=== PATIENT | male | born 1935 | race Caucasian/White ===

== ENCOUNTER → 2017-02-24 | Outpatient (CLI) | payer OTHER ==
[~2017-02-24] MED LIST: GADOBUTROL 10 ML VIAL IVP ONE
[2017-02-24 10:44] LABS: GLOMERULAR FILTRATION RATE > 60
== END ==
LOC: FIMAGING 09:25
PROVIDERS: ATTEND Family Medicine
DX: M51.36 Other intervertebral disc degeneration, lumbar region (principal); M51.37 Other intervertebral disc degeneration, lumbosacral region; M48.06 Spinal stenosis, lumbar region; M99.73 Connective tissue and disc stenosis of intervertebral foramina of lumbar region; M43.16 Spondylolisthesis, lumbar region; M51.26 Other intervertebral disc displacement, lumbar region; M12.88 Other specific arthropathies, not elsewhere classified, other specified site
CPT/HCPCS: 72158; A9585

== ENCOUNTER → 2017-12-19 | Outpatient (CLI) | payer OTHER | LOC: FIMAGING 10:23 | PROVIDERS: ATTEND Family Medicine | DX: S20.211A Contusion of right front wall of thorax, initial encounter (principal); M19.011 Primary osteoarthritis, right shoulder; Z87.81 Personal history of (healed) traumatic fracture ==

== ENCOUNTER → 2018-01-30 | Outpatient (CLI) | payer OTHER | LOC: FIMAGING 08:02 | PROVIDERS: ATTEND Family Medicine | DX: R90.82 White matter disease, unspecified (principal); I48.91 Unspecified atrial fibrillation; R26.89 Other abnormalities of gait and mobility; R42 Dizziness and giddiness ==

== ENCOUNTER 2018-10-24 16:06 | Observation (INO) | payer OTHER ==
--- NOTE | 2018-10-24 16:31 | EDPHY ---
H & P Time Seen by Provider: 10/24/18 16:31 HPI/ROS: Chief complaint. Fell, hit head HPI. Patient a 83-year-old male who was going out to get the newspaper and slipped and fell rolling down the hill. He struck his head but did not lose consciousness. He is on Coumadin. He complains of some anterior neck discomfort with change of voice. He has posterior and right lateral chest wall pain. Denies abdominal pain. He sustained abrasion to the right elbow. Otherwise good range of motion and he has been ambulatory. ROS 10 systems were reviewed and negative with the exception of the elements mentioned in the history of present illness Past Medical/Surgical History: Atrial fibrillation, hypertension, dyslipidemia, hypothyroid, TIA PE Social History: , nonsmoker, no alcohol Smoking Status: Never smoked Physical Exam: General Appearance: Alert well-developed male moderate distress vital signs are stable Eyes: Pupils equal and round no pallor or injection. ENT, no hemotympanum or Duncan sign. No oral pharyngeal or dental trauma. Small bump to the back of his head. Respiratory: There are no retractions, lungs are clear to auscultation. Cardiovascular: Regular rate and rhythm. Gastrointestinal: Abdomen is soft and nontender, no masses, bowel sounds normal. Neurological: Awake and alert, sensory and motor exams grossly normal. Skin: Abrasion right elbow Musculoskeletal: Neck is nontender. TLS spine nontender. Right posterior and right lateral chest wall tenderness Extremities symmetrical, full range of motion. Psychiatric: Patient is oriented X 3, there is no agitation. Constitutional: Initial Vital Signs Temperature (C) 36.3 C 10/24/18 16:13 Heart Rate 72 10/24/18 16:13 Respiratory Rate 16 10/24/18 16:13 Blood Pressure 170/103 H 10/24/18 16:13 O2 Sat (%) 94 10/24/18 16:13 O2 Delivery Mode Room Air Allergies/Adverse Reactions: acetaminophen [From Percocet] Allergy (Severe, Verified 10/24/18 16:23) PASSED OUT coffee (Coffea arabica) [Coffee] Allergy (Severe, Verified 10/24/18 16:23) BALANCE ISSUES, PERIPERAL VISION AFFECTED, N/V oxycodone HCl [From Percocet] Allergy (Severe, Verified 10/24/18 16:23) PASSED OUT RUM Allergy (Severe, Uncoded 12/13/10 15:11) VOMIT rum, alcohol Allergy (Intermediate, Uncoded 11/11/11 22:01) Vomiting Home Medications: Medication Instructions Recorded Ascorbic Acid [Vitamin C 500 mg 1,000 mg PO TID 03/25/13 (OTC)] Aspirin [Aspirin 81mg (OTC)] 81 mg PO DAILY 03/25/13 Atorvastatin Calcium [Lipitor 20 20 mg PO DAILY 03/25/13 mg (RX)] Herbals/Supplements -Info Only 1 each PO AD 03/25/13 Hydrochlorothiazide 12.5 mg PO DAILY 03/25/13 [Hydrochlorothiazide 12.5 MG (RX)] Levothyroxine [Synthroid 50 mcg 50 mcg PO HS 03/25/13 (RX)] Md Reconciled 03/25/13 03/25/13 Metoprolol Succinate Xr [Toprol Xl 100 mg PO HS 03/25/13 100 mg (RX)] Multivitamins [Tab-A-Cindi] 1 each PO DAILY 03/25/13 [place]-3 Fatty Acids [Fish Oil 1000 2,000 mg PO TID 03/25/13 mg (OTC)] Pharmacy Completed 03/25/13 03/25/13 Ubidecarenone [Coenzyme Q10] 400 mg PO DAILY 03/25/13 Valsartan [Diovan 80MG (RX)] 80 mg PO DAILY 03/25/13 Warfarin Sodium [Coumadin 2.5MG 2.5 mg PO THFR@0900 03/25/13 (RX)] Warfarin Sodium [Coumadin 5MG (RX)] 5 mg PO SUMOTUWESA@0900 03/25/13 Medical Decision Making - Diagnostics Imaging Results: Imaging Impressions Cervical Spine CT 10/24/18 16:41 Impression: Multilevel advanced degenerative change, as above-detailed, with no acute cervical osseous abnormality. If there is further clinical concern regarding the patient's symptoms, correlative MR imaging could be considered, if otherwise not contraindicated. Findings were discussed with SOLA WRIGHT MD at 18:48, on 10/24/2018. Chest CT 10/24/18 16:41 Impression: 1. There are acute right fourth, fifth, sixth, seventh, and eighth lateral rib fractures, and acute nondisplaced right posterior sixth, seventh, and eighth rib fractures, with areas of bibasilar subsegmental atelectasis and trace right pleural effusion, but no pneumothorax or pneumomediastinum. 2. Coronary artery atherosclerotic calcifications. 3. Sequela of old granulomatous disease. Findings were discussed with SOLA WRIGHT MD at 19:04, on 10/24/2018. Head CT 10/24/18 16:41 Impression: Moderately advanced senescent features, with no acute intracranial abnormality identified on this unenhanced CT evaluation. If there is further clinical concern regarding the patient's symptoms, MR imaging is suggested, if not otherwise contraindicated. Findings were discussed with SOLA WRIGHT MD at 18:48, on 10/24/2018. CT head shows no evidence of intracranial bleeding Cervical spine shows DJD but no obvious acute trauma CT chest shows fractures right 4th, 5th, 6th, 7th an 8 lateral ribs and then posteriorly right 6 7th and 8th rib fractures. No pneumothorax Procedures: IV normal saline Flexeril, lidocaine patch ED Course/Re-evaluation: Re-evaluation patient remained stable. He and I discussed imaging and lab results. We discussed treatment plan including recommendation for admission. He expresses and agreement I consulted discussed case with Dr. Oro will see him in the emergency department Differential Diagnosis: I considered intracranial bleeding secondary to head injury and being on Coumadin. I considered cervical spine injury. I considered multiple rib fractures and pneumothorax as well - Data Points Laboratory Results: Laboratory Results 10/24/18 16:00 10/24/18 16:00 10/24/18 10/24/18 10/24/18 16:00 16:00 16:00 WBC 7.76 10^3/uL 10^3/uL (3.80-9.50) RBC 4.84 10^6/uL 10^6/uL (4.40-6.38) Hgb 16.4 g/dL g/dL (13.7-17.5) Hct 47.5 % % (40.0-51.0) MCV 98.1 fL fL (81.5-99.8) MCH 33.9 pg pg (27.9-34.1) MCHC 34.5 g/dL g/dL (32.4-36.7) RDW 12.6 % % (11.5-15.2) Plt Count 185 10^3/uL 10^3/uL (150-400) MPV 9.0 fL fL (8.7-11.7) Neut % (Auto) 77.8 % H % (39.3-74.2) Lymph % (Auto) 11.9 % L % (15.0-45.0) [place] % (Auto) 6.8 % % (4.5-13.0) Eos % (Auto) 2.8 % % (0.6-7.6) Baso % (Auto) 0.3 % % (0.3-1.7) Nucleat RBC Rel Count 0.0 % % (0.0-0.2) Absolute Neuts (auto) 6.04 10^3/uL 10^3/uL (1.70-6.50) Absolute Lymphs (auto) 0.92 10^3/uL L 10^3/uL (1.00-3.00) Absolute Monos (auto) 0.53 10^3/uL 10^3/uL (0.30-0.80) Absolute Eos (auto) 0.22 10^3/uL 10^3/uL (0.03-0.40) Absolute Basos (auto) 0.02 10^3/uL 10^3/uL (0.02-0.10) Absolute Nucleated RBC 0.00 10^3/uL 10^3/uL (0-0.01) Immature Gran % 0.4 % % (0.0-1.1) Immature Gran # 0.03 10^3/uL 10^3/uL (0.00-0.10) PT 21.2 SEC H SEC (12.0-15.0) INR 1.82 H (0.83-1.16) APTT 38.8 SEC H SEC (23.0-38.0) Sodium 132 mEq/L L mEq/L (135-145) Potassium 3.3 mEq/L L mEq/L (3.5-5.2) Chloride 97 mEq/L mEq/L (97-110) Carbon Dioxide 27 mEq/l mEq/l (22-31) Anion Gap 8 mEq/L mEq/L (6-14) BUN 12 mg/dL mg/dL (7-23) Creatinine 1.0 mg/dL mg/dL (0.7-1.3) Estimated GFR > 60 Glucose 129 mg/dL H mg/dL (70-100) Calcium 9.2 mg/dL mg/dL (8.5-10.4) Departure - Departure Disposition: [facility] Inpatient Acute Clinical Impression: Ribs, multiple fractures Qualifiers: Encounter type: initial encounter Fracture type: closed Laterality: right Qualified Code(s): S22.41XA - Multiple fractures of ribs, right side, initial encounter for closed fracture Condition: Fair Referrals: NONE *PRIMARY CARE P,. [Primary Care Provider] - As per Instructions
[2018-10-24 17:27] LABS: PLATELET COUNT 185 10^3/uL (150-400)
[2018-10-24] MEDS ORDERED: IOHEXOL 300 mgI/ML (OMNIPAQUE) 150 ML BTL IV ONE (17:37)
[2018-10-24 17:38] LABS: INR 1.82 (0.83-1.16); PROTIME(PATIENT) 21.2 SEC (12.0-15.0)
[2018-10-24] MEDS ORDERED: LIDOCAINE 4%/MENTHOL 1% PATCH TD ONE (19:14)
[2018-10-24] MEDS ORDERED: CYCLOBENZAPRINE 10 MG TAB PO ONE (19:14)
[2018-10-24] MEDS ORDERED: ONDANSETRON 4 MG/2 ML VIAL IVP PRN (19:47)
[2018-10-24] MEDS ORDERED: HYDROmorphONE/DILAUDID 1 MG/ML INJ IVP PRN (19:57)
[2018-10-24] MEDS ORDERED: LR 1,000 ML IV SCH (20:00)
[2018-10-24] MEDS ORDERED: PROTOCOL POTASSIUM 1 DOSE MISC PRN (20:53)
[2018-10-24] MEDS: LIDOCAINE 4%/MENTHOL 1% PATCH TD SCH (21:25)
[2018-10-24] MEDS: PATCH REMOVAL 1 EA PATCH TD SCH (21:26)
[2018-10-24] MEDS: BACITRACIN/POLYMYXIN B SULFATE 28.3 GM TUBE TP SCH (21:26)
[2018-10-24] MEDS: LEVOTHYROXINE 50 MCG TAB PO SCH (21:58)
[2018-10-24] MEDS: METOPROLOL TARTRATE 25 MG TAB PO SCH (21:58)
--- NOTE | 2018-10-24 22:05 | GHP ---
[f rep st] HISTORY AND PHYSICAL DATE OF ADMISSION: 10/24/2018 ADMITTING DIAGNOSIS: Fractures, right ribs 4, 5, 6, 7, 8 laterally and 6, 7, 8 posteriorly. HISTORY OF PRESENT ILLNESS: The patient is an 83-year-old white male who has had balance problems th at were first noted in August of 2017. He walked out into his front yard to get newspapers out of [place]. To do so, he had to walk up a small incline which was filled with rocks. He got 3 p apers out, then stepped on a loose rock and ran forward approximately 10 feet falling and landing on his right side, right chest and head on a cement walk. There was no loss of consciousness. He could not get up first. A workman from the house next door came over and helped him up and got hi m into the house. Shortly thereafter, he came to the emergency room. He has had a history of TIAs prior to August 2017. As of January 2018, he had 2 episodes where it was difficult for him to get up off his couch. MRI was performed and did not show any evidence of a CVA. He has been to see a neuropsychologist because of short-term memory issues. He has also been evalu ated for moderate to severe decrease in memory function. He does have a slight aphasia by history. He does use a walking stick. At this point he is seen lying comfortably in ER bed 3. PAST SOCIAL HISTORY: He does not smoke. He does not use alcohol. After hip surgery, he took a Perc ocet when he was sitting in a chair and passed out. The record reflects he has an allergy to Percoce t and/or Tylenol. I think that is a misstatement. CURRENT MEDICATIONS: Include vitamin C 1000 mg 3 times a day, 81 mg aspirin a day, Lipitor 20 mg gilmar ly, and herbal supplements. He takes hydrochlorothiazide 12.5 daily. He takes Synthroid 50 mcg jeet y. He takes metoprolol XR 100 mg at bedtime, multivitamin. He takes omega-3 fatty acids 2000 mg 3 t imes a day. He takes Co Q10 400 mg daily. He takes valsartan 80 mg daily. He has been taking warfa rin 2.5 mg on and Fridays and only 5 mg Friday, Friday, Friday, Friday, Friday. Rece [facility] for dental surgery, he has been placed on a Lovenox bridge. PAST SURGICAL HISTORY: His surgeries have included tonsillectomy. He has had bilateral hip replacem ent. He has had bilateral cataract extraction. He has a lumbar laminectomy, L3,-L4, L4-L5, L5-S1. He had a prostatectomy for cancer. No history of rheumatic fever, tuberculosis, hepatitis, transfusions. REVIEW OF SYSTEMS: He had a dental surgery last Friday to work on his gums. He does have a BiPAP device, and this has irritated the gums. The bone had to be carefully shaved down and recovered wit h gum. He recently has obtained hearing aids. He has had atrial fibrillation for 2-3 years. He wea rs lenses for reading. He does have macular degeneration. He has had dental implants. He has been hypothyroid since 2005. Last TSH was 1 year ago. He has allergies that he attributes to cat scratch and bite or pollen in [place] many years ago. He has been hypertensive since 2004. He has mild pro statism manifested by difficulty starting his flow, with decrease in the flow and minimal terminal dr ibbling. Note is made he does not have any nocturia. There are no limits on his activities in terms of climbing stairs. He in the last 6 months except for dental topical steroid. His CT shows chronic microvascular ischemic ghosts. His neck shows multilevel degenerative changes. His chest shows fractures of ribs 4, 5, 6, 7, 8 laterally and 6, 7, 8 posteriorly. His blood pressu re on admission was in the 170s systolic. Most recently, it was 152/96. He normally runs his systol ic in the 120s. His room air sat is 94. His respirations are 14. His temperature is 36.7. He is a wake, alert and quite talkative. Occasionally has word choice issues, but on the whole could carry o n a very good conversation. PHYSICAL EXAMINATION: GENERAL APPEARANCE: He is interactive and pleasant. He is oriented to person , place, and time. HEAD: Skull is normocephalic. I do not detect any bruising in his right parieta l occipital region which is where he fell. He impacted the sidewalk. There are no raccoon eyes. No Duncan signs. He has normal dental occlusion. EYES: Pupils equal, round, reactive to light and ac commodation. Extraocular movements intact. NECK: Nontender to palpation. I do not detect any brui ts. Thyroid is not enlarged. NEUROLOGIC: He is oriented to person, place, and time. GCS is 15. I do not detect focal lateralizing findings. UPPER EXTREMITIES: Unremarkable except for the lateral aspect of his right elbow where there is a mo derately large skin tear. CHEST: Clear to auscultation. He is tender posteriorly and laterally ove r his fractured ribs as one would expect. The Lidoderm patch which was present has been readjusted t o cover the most tender areas. CARDIAC: Shows S1, S2 to be normal. He appears to have fairly regul ar heart rate at this time, bu9t I do not have any EKG tracing to prove whether he has a slow atrial fibrillation or not. ABDOMEN: His abdomen is generous. There is ecchymosis from his use of his Vicente enox last week. PELVIS: Stable to AP and lateral compression. LOWER EXTREMITIES: Unremarkable. LABORATORY DATA: His white count is 7.7. His INR is 1.82. His glucose is 129. Sodium is 133. His potassium is 3.3. His BUN is 12, his creatinine is 1.0. His platelet count is 185. IMPRESSION: Patient who is of great fall risk. He has fallen 3 times within the last year and broke n ribs with each fall. I am concerned for his continued use of anticoagulants. This will have to be sorted out by the hospitalist service as far as recommend further recommendations. From a neurologi c standpoint, he appears to be intact. Serial exams will be obtained. A followup MRI will be used i f necessary. In regard to his chest, he does have multiple rib fractures. These will be treated with topical lido megan patches and Flexeril. He will receive high dose Tylenol and Dilaudid. As his INR returns more towards a normal range, consideration should be given to using nonsteroidal anti-inflammatories. /[id number]/MODL
[2018-10-24] MEDS: CYCLOBENZAPRINE 10 MG TAB PO SCH (22:07)
[2018-10-24] MEDS: OMEGA-3 FATTY ACIDS 1,000 MG CAP PO SCH (22:07)
[2018-10-24] MEDS: ACETAMINOPHEN 500 MG TAB PO SCH (23:37)
--- NOTE | 2018-10-24 23:45 | CPEKG ---
Test Reason : OPEN Blood Pressure : / mmHG Vent. Rate : 077 BPM Atrial Rate : 357 BPM P-R Int : 064 ms QRS Dur : 100 ms QT Int : 373 ms P-R-T Axes : 000 024 247 degrees QTc Int : 423 ms Atrial fibrillation Confirmed by Andrea Magallon ([id number]) on 10/24/2018 11:44:57 PM Referred By: Andrea Magallon Confirmed By:Andrea Magallon
[2018-10-25 06:14] LABS: PLATELET COUNT 156 10^3/uL (150-400)
[2018-10-25 06:27] LABS: INR 1.77 (0.83-1.16); PROTIME(PATIENT) 20.7 SEC (12.0-15.0)
[2018-10-25] MEDS ORDERED: POTASSIUM CL 10 MEQ TAB PO ONE (08:53)
[2018-10-25] MEDS ORDERED: MULTIVITAMINS 1 EACH TAB PO SCH (09:00)
[2018-10-25] MEDS ORDERED: ASPIRIN 81 MG CHEWABLE TAB PO SCH (09:00)
[2018-10-25] MEDS ORDERED: HYDROCHLOROTHIAZIDE 25 MG TAB PO SCH (09:00)
[2018-10-25] MEDS ORDERED: WARFARIN SODIUM 2.5 MG TAB PO SCH (09:00)
[2018-10-25] MEDS ORDERED: LOSARTAN POTASSIUM 50 MG TAB PO SCH (09:00)
[2018-10-25] MEDS ORDERED: ATORVASTATIN CALCIUM 10 MG TAB PO SCH (09:00)
--- NOTE | 2018-10-25 09:17 | ASMTCMCOM ---
CM Note CM Note Notes: Pt is a 83 year old M, lives with . Presents after fall, has multiple rib fractures. Pt reports having memory issues, uses walking stick at baseline. PT/OT evals pending. Inpatient Rehab order in. Discharge plan TBD at this point. CM to follow. Plan: TBD Date Signed: 10/25/2018 09:17 AM Electronically Signed By:GABRIELLA Núñez
--- NOTE | 2018-10-25 09:21 | GCON ---
[f rep st] CONSULTATION DATE OF CONSULTATION: 10/24/2018 REFERRING PHYSICIAN: Mario Oro MD REASON FOR CONSULTATION: Medical opinion regarding continuation of Coumadin, status post fall. HISTORY: The patient is an 83-year-old male, who went out to the front yard today to clear some news papers that had blown into their landscaping. While he was there, some loose rocks slipped under his feet, as their landscaping is on an angle, and he fell to the ground, hitting his chest wall, rolled down the hill and hit his head, but did not lose consciousness. This event was witnessed by a local construction project administrator, who came over immediately. Said he was, briefly, a little confused, but the pa louisa subsequently got up from the ground and was able to walk back to the house and tell his wh at had happened. They subsequently drove to the emergency room because he was having ongoing chest p ain. In the ER, he was diagnosed with 8 rib fractures and is now on step-down unit, admitted to [facility], Dr. Oro. Regarding his long-term stability on his feet, he does have some balance issues and has seen Neurolog y and Neuropsychology as an outpatient. MRI of the brain was negative. He has compensated for this with physical therapy, walking sticks and massage therapy. Prior to this event, he has not had a pro blem with falls. He does not think the primary problem for his fall today was a balance issue, but i t was these loose rocks in the landscaping that went out from under him due to the angle of the slope . He also recently had some dental work and was on a Lovenox bridge, while he came off warfarin for 1 week. He is now resuming his warfarin, but is not yet subtherapeutic. He had been very stable on warfarin with INRs ranging 2.4-2.5, being followed closely [facility]. PAST MEDICAL HISTORY: 1. Atrial fibrillation. 2. Pulmonary embolus, post hip surgery. 3. Hypertension. 4. Prostate cancer status post prostatectomy. 5. SVT. 6. Obstructive sleep apnea, on BiPAP, post 2 L at night. 7. TIA. PAST SURGICAL HISTORY: 1. Lumbar spine surgery. 2. Bilateral total hip arthroplasty. MEDICATIONS: Please see computer record for full detailed list. ALLERGIES: Oxycodone. SOCIAL HISTORY: No smoking. No alcohol. He lives with his . REVIEW OF SYSTEMS: Complete review of systems obtained. Review of systems negative regarding consti tutional, HEENT, GI, pulmonary, vascular, , hematology, skin, muscular, endocrine, psych, except fo r positives as in HPI. FAMILY HISTORY: Reviewed, noncontributory to the presenting complaint. PHYSICAL EXAMINATION: GENERAL: Well-developed, well-nourished male, in no acute distress. VITAL SI GNS: Temperature 36.7, pulse 75, blood pressure 164/98, saturating 94% on room air. EYES: Normal c onjunctivae. Pupils react to light. ENT: Normal ears and nose. Hearing intact. Normal teeth. Or opharynx moist. NECK: Trachea midline. No thyromegaly. CHEST: Normal effort. Lungs are clear to auscultation bilaterally. CARDIOVASCULAR SYSTEM: Regular rate and rhythm. No murmur. No extremit y edema. ABDOMEN: Soft, nontender. No hepatosplenomegaly. SKIN: Warm, dry, intact. No rash. MU SCULOSKELETAL: No cyanosis or clubbing. Strength 5/5 upper and lower extremities. NEURO: Cranial nerves intact. Normal sensation to light touch. PSYCH ASSESSMENT: Awake, alert and oriented x3. N ormal affect. Normal judgment. Normal memory. LABORATORY DATA: White count 7.76, hematocrit 47.5, and platelets 185. Sodium 132, potassium 3.3, c hloride 97, bicarb 27, BUN 12, creatinine 1.0, glucose 129 and INR is 1.8. IMAGING: EKG viewed by me and my personal interpretation is atrial fibrillation, rate controlled. CT scan of the chest shows right anterior rib fractures, ribs 4 through 8, as well as some posterior rib fractures, ribs 6,7, and 8, for a total of 8 separate fractures. I personally discussed with Dr. Oro regarding hospital course, and request for consultation. ASSESSMENT AND PLAN: 1. Rib fractures x8. Management per Dr. Oro. EzPAP incentive spirometry and pain control have b een ordered. 2. Atrial fibrillation. He is currently rate controlled. I discussed the risk, benefit and ratios of continuing the warfarin with his current fall and the patient and his feel very strongly abou t wanting to continue warfarin therapy. They do not believe the current fall was a result of his mil d balance issues, but it was due to the loose rocks and the landscaping. We will therefore resume hi s warfarin. He is currently subtherapeutic due to recent dental work, but had been very stable on th is dose for a long period of time, so I will resume home dose and follow INRs. 3. Obstructive sleep apnea. Continue BiPAP at night, post 2 L. I thank you very much for this consultation. Hospitalist Medicine will continue to follow. /[id number]/MODL
--- NOTE | 2018-10-25 09:35 | TRAUMAPN ---
Trauma Progress Note Assessment/Plan: PAD#[address] 10/[address] Larson's input appreciated Assessment: Slept well, Pain control good this AM. Plan: Will reassess pain control later today and consider when discharge is appropriate. Subjective: no complaints. As noted in Dr. Larson's note patient and wish to continue coumadin understanding the risks of bleeding if another fall occurs. Objective: Vital Signs Temp Pulse Resp BP Pulse Ox 36.6 C 67 15 146/90 H 100 10/25/18 08:00 10/25/18 08:00 10/25/18 08:00 10/25/18 08:00 10/25/18 08:00 Laboratory Results 10/25/18 06:00 10/25/18 06:00 10/24/18 10/25/18 10/26/18 05:59 05:59 05:59 Intake Total 1150 Output Total 650 Balance 500 PT 20.7 SEC (12.0-15.0) H 10/25/18 06:00 INR 1.77 (0.83-1.16) H 10/25/18 06:00 Physical Exam - Physical Exam General Appearance: WD/WN, alert, no apparent distress Respiratory: lungs clear, normal breath sounds Cardiac/Chest: irregularly irregular Abdomen: normal bowel sounds, non-tender, soft Male Genitalia: deferred Rectal: deferred Back: Normal inspection Skin: normal color, warm/dry Neuro/Psych: no motor/sensory deficits, alert, normal mood/affect, oriented x 3 , other Time Spent w/Patient (minutes): 25
[2018-10-25] MEDS: OMEGA-3 FATTY ACIDS 1,000 MG CAP PO SCH ×3 (10:47→20:47)
[2018-10-25] MEDS: CYCLOBENZAPRINE 10 MG TAB PO SCH ×3 (10:48→20:44)
[2018-10-25] MEDS: LIDOCAINE 4%/MENTHOL 1% PATCH TD SCH ×2 (10:49→20:48)
[2018-10-25] MEDS: BACITRACIN/POLYMYXIN B SULFATE 28.3 GM TUBE TP SCH ×3 (10:53→20:47)
[2018-10-25] MEDS: ACETAMINOPHEN 500 MG TAB PO SCH ×3 (10:54→20:46)
--- NOTE | 2018-10-25 12:58 | HOSPPROG ---
Hospitalist Progress Note Assessment/Plan: 83 yo M w AF on warfarin here w mechanical fall, rib fx rib fx: rec IS, flutter valve, lidocaine patch warfarin: resume warfarin, bb pain: surprisingly moderate dispo: ok to dc home per hospital medicine Subjective: case d/w dr tabares Objective: Vital Signs Temp Pulse Resp BP Pulse Ox 36.6 C 68 17 128/68 H 94 10/25/18 08:00 10/25/18 12:00 10/25/18 12:00 10/25/18 12:00 10/25/18 12:00 Laboratory Results 10/25/18 06:00 10/25/18 06:00 10/24/18 10/25/18 10/26/18 05:59 05:59 05:59 Intake Total 1150 Output Total 650 500 Balance 500 -500 PT 20.7 SEC (12.0-15.0) H 10/25/18 06:00 INR 1.77 (0.83-1.16) H 10/25/18 06:00 - Physical Exam Constitutional: no apparent distress, appears nourished Eyes: PERRL, anicteric sclera Ears, Nose, Mouth, Throat: moist mucous membranes, hearing normal Cardiovascular: regular rate and rhythym, no murmur, rub, or gallop Respiratory: no respiratory distress, no rales or rhonchi Gastrointestinal: normoactive bowel sounds, soft, non-tender abdomen Genitourinary: No nicholson in urethra Skin: warm, normal color Musculoskeletal: full muscle strength, no muscle tenderness Neurologic: AAOx3 ICD10 Worksheet Patient Problems: Problems Problem Status Onset Ribs, multiple fractures Acute
--- NOTE | 2018-10-25 13:02 | PDCONSULT ---
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 Although patient is at high risk for bleeding complications due to age and falls, his risk for further CVA is high. Both patient and feel strongly that he is maintained on warfarin therapy given personal and family history of AFib and strokes # right-sided rib fractures, no pneumothorax or hemothorax # mechanical falls # atrial fibrillation # CVA. One CVA with mild residual deficits combined with multiple TIAs. # history of PE, provoked after hip surgery # moderate cognitive impairment. Has been evaluated by Neurology as well as neuropsych. # SHANE # hypothyroidism PLAN # PT/OT # given atrial fibrillation, multiple TIAs and CVA as well as strong family history of AFib and CVA combined with strong patient and spouse preference, suggest continuing anticoagulation with warfarin # suggest mono therapy with warfarin and discontinue aspirin on discharge given advanced age of bleeding risk. Plus, patient denies history of coronary disease # advised patient not to take herbal supplements for due to possible drug interactions # given ultra low dose of metoprolol query whether not he needs a but defer to outpatient provider # fall precautions # continue CPAP with bleed in oxygen, okay for patient to use home machine # Feeding - regular diet # Analgesia APAP # Sedation none # Thromboprophylaxis - SQ hep # Head of bed elevated # Ulcer prophylaxis - NA # Glucose SSI # Skin no skin breakdown # Delirium - delirium precautions IMAGING Personally reviewed interpreted radiographic images well radiology reads. 10/24/2018 CT chest-multiple right-sided rib fractures intrapleural pleural effusion. No pneumothorax, no pneumomediastinum, no emphysematous changes small calcified pulmonary nodules consistent with old granulomatous disease CONSULT I was asked by Dr Oro of trauma surgery to evaluate this patient for ICU care in the setting of multiple medical comorbidities CC chest pain, sob HPI 83-year-old male with multiple medical problems and clean atrial fibrillation on longstanding Coumadin as well as moderate cognitive impairment who was admitted to the hospital after progressive chest pain shortness of breath after a mechanical fall. 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 Fall was witnessed. Denies hitting head, no loss of consciousness. He denied fevers, chills, nausea, vomiting, angina, diarrhea, nausea, vomiting, rash, leg swelling. In the emergency department he underwent imaging which demonstrated a rib fractures and was admitted to the ICU for closer monitoring. Patient family complained of longstanding bowels and cognition issues. His previous head MRI brain. He has been evaluated by neuropsychiatry use determine patient has moderate cognitive impairment. He works with physical therapy as well as massage therapy as an outpatient. He has never had a head bleed. allergies A Pap, coffee, oxycodone, alcohol MEDS reviewed. Aspirin, atorvastatin, warfarin, vitamin-C, hydrochlorothiazide, Synthroid Past medical history Atrial fibrillation, TIA, CVA, hyperlipidemia, hypothyroidism, Family history Multiple family members with AFib and stroke Social history Lives in [place], lives with , nonsmoker, nondrinker Review of systems A comprehensive 10 point review of systems was obtained is negative except as per HPI Vitals Afebrile, heart rate irregular 68, blood pressure 128/68, respiratory is 17 94% room air GEN: NAD, resting in bed, interactive NEURO: A&Ox3, CN 2-12 GI, slowed speech some difficulties with word finding. HEENT: PERRL, EOMI, MMM, OP clear NECK: supple, trachea midline CHEST normal shape, no pes excavatum CVS: Irregularly irregular no m/r/g PULM: CTA B, no wheezes/rales/rhonchi ABD: soft, NT, ND, NABS EXT: no swelling, no cyanosis, full ROM SKIN: warm, dry, intact, no rash PSYCH CAM negative, appropriate affect Labs Reviewed
--- NOTE | 2018-10-25 17:18 | ASMTCMCOM ---
CM Note CM Note Notes: CM discussed discharge plan with pt and his . They are requesting HomeCare with [facility] since [facility] does not have availabilities until Wedneday. CM submit referral to [facility]. Discussed plan with RN and speech therapy director. Family to transport. No other needs identified. Plan: Home with [facility]. Date Signed: 10/25/2018 05:17 PM Electronically Signed By:GABRIELLA Núñez
--- NOTE | 2018-10-25 19:43 | PDIAF ---
- Diagnosis Diagnosis: right rib fractures 4-9 laterally and 6-9 posteriorly Code Status: Full Code - Medication Management Discharge Medications: electronically signed and located in the Home Medication List. - Orders Services needed: Home Care, Physical Therapy, Occupational Therapy Home Care Face to Face: I certify that this patient was under my care and that I had the required [id number] encounter meeting the encounter requirements on the discharge day. My findings support the fact that the patient is homebound as defined in Home Care Face to Face Continued: CMS Chapter 7 Medicare Benefits Manual 30.1.1 , The condition of the patient is such that there exists a normal inability to leave home and consequently, leaving home would require a considerable and taxing effort. Diet Recommendation: no restrictions on diet Diet Texture: Regular Texture Diet Additional Instructions: Use the incentive spirometer 10 times every hour, Acapella 10 times every hour as well. - Follow Up Care Current Providers and Referrals: James Dukes MD [Medical Doctor] - (Call for a follow up appointment with Franco Curtis or Sarah in 10-14 days or see your primary care doctor in the same time frame.) NONE *PRIMARY CARE P,. [Primary Care Provider] - As per Instructions
[2018-10-25] MEDS: LEVOTHYROXINE 50 MCG TAB PO SCH (20:44)
[2018-10-25] MEDS: METOPROLOL TARTRATE 25 MG TAB PO SCH (20:45)
[2018-10-25] MEDS: PATCH REMOVAL 1 EA PATCH TD SCH (20:47)
[2018-10-25 20:50] VITALS: BP 146/80
--- NOTE | 2018-10-26 05:57 | GDS ---
[f rep st] DISCHARGE SUMMARY DISCHARGE DIAGNOSES: 1. Fracture right ribs, laterally 4 through 8 and right ribs posteriorly 6 through 8. 2. Atrial fibrillation, on warfarin. 3. History of transient ischemic attacks and cerebrovascular accidents. DISCHARGE DISPOSITION: Home with home health service (not [facility]). CONDITION: Good. DIETARY RECOMMENDATIONS: There are no restrictions on his diet. His dietary texture is regular. HOME MEDICATIONS: Include new medications for pain control which are Tylenol 1000 mg every 8 hours, Flexeril 5 mg every 8 hours, Dilaudid 2 mg every 4 hours as needed, Lidocaine patch over the rib frac tures. He will also receive topical antibiotic over his right elbow skin tear. He will continue his omega-3 fatty acids (fish oil 1000 mg) daily, multivitamin 1 tablet daily, vitamin C 1000 mg twice a day, noon and 6 p.m. He will take warfarin 5 mg every Friday, Friday, and Friday and he will bertha e 2.5 mg on Friday, Friday, , and Friday. He will continue his Synthroid 50 mcg at bedtim e, 81 mg aspirin, his herbal supplements, his Cozaar 50 mg daily, his Lopressor 25 mg at bedtime, hyd rochlorothiazide 25 mg daily, his Lipitor 10 mg daily and his vitamin C 2000 mg daily in addition to the vitamin C listed above. ACTIVITY: He is to use his incentive spirometer 10 times every hour and in the half hour use Acapell a 10 times. FOLLOWUP: He is to follow up with Dr. Jesse Dukes' office in 7-10 days where he will see his prima care doctor in the same timeframe. HOSPITAL COURSE: The patient was admitted and was in the hospital for approximately 24 hours. He wa s doing well with his to approximately 1999. He was able to get up and move around withou t discomfort. He was able to use his Acapella without difficulty. His chest x-rays remained stable. He will be discharged. discharge forms were completed. /[id number]/MODL
--- NOTE | 2018-10-26 08:58 | ASDISCHSUM ---
Discharge Information Plan Status:Home with Home Health Medically Cleared to Leave: Discharge Date:10/25/2018 08:55 PM CM D/C Disposition:Home Health Service ADT D/C Disposition:[id number] Projected Discharge Date:10/25/2018 11:00 AM Transportation at D/C:Family Discharge Delay Reason: Follow-Up Date:10/25/2018 11:00 AM Discharge Slot: Final Diagnosis: Placement Information Referral Type:*Home Health Care Services Referral ID:[id number] Provider Name:[facility] Address 1:[address] Address 2: City:[place] Selection Factors: State:[place] Patient Contact Information Contact Name:JOI Relationship: Address:[address] Work Phone: City:[place] Alternate Phone: State/Zip Code:[place] [address] Email: Financial Information Financial Class:Medicare Primary Plan Desc:MEDICARE INPATIENT Primary Plan Number:[id number] Secondary Plan Desc:WILLIS RODRIGUEZ CULLEN Secondary Plan Number:[id number] Assessment Information [facility] CM Progress Note CM Note CM Note Notes: Pt is a 83 year old M, lives with . Presents after fall, has multiple rib fractures. Pt reports having memory issues, uses walking stick at baseline. PT/OT evals pending. Inpatient Rehab order in. Discharge plan TBD at this point. CM to follow. Plan: TBD Date Signed: 10/25/2018 09:17 AM Electronically Signed By:GABRIELLA Núñez [facility] CM Progress Note CM Note CM Note Notes: CM discussed discharge plan with pt and his . They are requesting HomeCare with [facility] since [facility] does not have availabilities until Wedneday. CM submit referral to [facility]. Discussed plan with RN and computerized machine fabric cutter. Family to transport. No other needs identified. Plan: Home with [facility]. Date Signed: 10/25/2018 05:17 PM Electronically Signed By:GABRIELLA Núñez Case Management Discharge Plan Note Case Management Discharge Discharge Order Complete? Answers: Yes Patient to Obtain Answers: via Family Medications Transportation Arranged Answers: Family/Friends Faxed Final Orders Answers: Yes Agency/Facility Transfer Answers: Yes Report Printed & Faxed to Receiving Agency Family Notified Answers: Yes Discharge Comments Notes: Pt discharged home with [facility]. Discharge ppwk sent via [employer]. Family agreeable with plan. Date Signed: 10/26/2018 08:55 AM Electronically Signed By:GABRIELLA Núñez LACE LACE Length of stay for Answers: 1 day current admission Acuity / Level of Answers: No Care: Did the patient have an inpatient admission? Comorbidities - select Answers: Any tumor (including all that apply lymphoma or leukemia) Cerebrovascular disease (CVA, TIA, aneurysms, vasc ular dementia) History of falls Other Notes: lumbar laminectomy, # of Emergency department Answers: 0 visits in the last 6 months Score: 8 Date Signed: 10/26/2018 08:57 AM Electronically Signed By:Lanny Beilke, CUFF PRESSER Intervention Information Intervention Type:*Incorrect Registration Date of Service:10/25/2018 09:57 AM Patient Type:Inpatient Staff Member:Mindy Macias Hours: Discipline: Severity: Comment:
[2018-10-26] MEDS ORDERED: WARFARIN SODIUM 5 MG TAB PO SCH (09:00)
== END 2018-10-25 20:55 | disposition home health service (06) ==
LOC: INTOOBSV 19:21 → F2N 20:21
PROVIDERS: ADMIT Surgery; ATTEND Surgery
DX: S22.41XA Multiple fractures of ribs, right side, initial encounter for closed fracture (principal); S50.311A Abrasion of right elbow, initial encounter; S09.90XA Unspecified injury of head, initial encounter; I48.91 Unspecified atrial fibrillation; I10 Essential (primary) hypertension; I25.10 Atherosclerotic heart disease of native coronary artery without angina pectoris; E78.5 Hyperlipidemia, unspecified; E03.9 Hypothyroidism, unspecified; G47.33 Obstructive sleep apnea (adult) (pediatric); W17.81XA Fall down embankment (hill), initial encounter; Y92.008 Other place in unspecified non-institutional (private) residence as the place of occurrence of the external cause; Y99.9 Unspecified external cause status; Y93.9 Activity, unspecified; Z79.01 Long term (current) use of anticoagulants; Z86.73 Personal history of transient ischemic attack (TIA), and cerebral infarction without residual deficits; Z85.46 Personal history of malignant neoplasm of prostate; Z96.643 Presence of artificial hip joint, bilateral
CPT/HCPCS: 70450; 71045; 71260; 72125; 92523; 93005; 97116; 97162; 97166; 97535; G0378; Q9967

== ENCOUNTER 2018-10-27 13:17 | Inpatient (IN) | payer OTHER ==
[2018-10-27 14:38] LABS: PLATELET COUNT 154 10^3/uL (150-400)
--- NOTE | 2018-10-27 15:03 | EDPHY ---
H & P Stated Complaint: fell on friday and 5 ribs on right broken. Unable to thrive at home. Time Seen by Provider: 10/27/18 13:55 HPI/ROS: CHIEF COMPLAINT: Severe right-sided rib pain HISTORY OF PRESENT ILLNESS: 83-year-old male presents with severe right-sided rib pain. He fell on 10/24/2017 and sustained multiple rib fractures. He was admitted to the [facility] trauma service and discharged home 2 days ago. He was discharged home on Dilaudid, Flexeril and lidocaine patches. Since discharge home, onset of severe pain, unrelieved with Flexeril and lidocaine patches. This morning, he was difficult to arouse. He has not taken oral Dilaudid since discharge because his feels the medication is too strong for him. He complains 10/10 right-sided chest pain. No shortness of breath or abd pain and no new complaints. REVIEW OF SYSTEMS: complete 10 point ROS negative except as noted in the HPI Source: Patient, Family - Personal History Current Tetanus Diphtheria and Acellular Pertussis (TDAP): Yes Tetanus Vaccine Date: 2000 - Medical/Surgical History Hx Asthma: No Hx Chronic Respiratory Disease: No Hx Diabetes: No Hx Cardiac Disease: Yes Hx Renal Disease: No Hx Cirrhosis: No Hx Alcoholism: No Hx HIV/AIDS: No Hx Splenectomy or Spleen Trauma: No Other PMH: a-fib, hypertension, hyperlipidemia, hypothyroid, tia/stroke, alexandre, arthritis, prostate ca - prostatectomy, bilat hip rep, tonsillectomy, lumbar laminectomy, PE - Social History Smoking Status: Never smoked Alcohol Use: Sober Drug Use: None Additional Social History: - Physical Exam Exam: General Appearance: Alert, pleasant, appears in pain with torso movement Eyes: Pupils equal and round, no conjunctival pallor ENT, Mouth: Mucous membranes moist Neck: Normal inspection, NT, ROM without pain Respiratory: right c/w tenderness, normal RR, lungs are clear to auscultation Cardiovascular: Regular rate and rhythm Gastrointestinal: Abdomen is soft and nontender Back: no midline tenderness Neurological: A&O, nonfocal exam Skin: Warm and dry Extremities: Normal inspection Psychiatric: Mood and affect normal Constitutional: Initial Vital Signs Temperature (C) 36.8 C 10/27/18 13:23 Heart Rate 90 10/27/18 13:23 Respiratory Rate 16 10/27/18 13:23 Blood Pressure 164/109 H 10/27/18 13:23 O2 Sat (%) 96 10/27/18 13:23 O2 Delivery Mode Nasal Cannula O2 (L/minute) 2 Allergies/Adverse Reactions: coffee (Coffea arabica) [Coffee] Allergy (Severe, Verified 10/27/18 13:29) BALANCE ISSUES, PERIPERAL VISION AFFECTED, N/V oxycodone HCl [From Percocet] Allergy (Severe, Verified 10/27/18 13:29) PASSED OUT RUM Allergy (Severe, Uncoded 12/13/10 15:11) VOMIT rum, alcohol Allergy (Intermediate, Uncoded 11/11/11 22:01) Vomiting Home Medications: Medication Instructions Recorded Ascorbic Acid [Vitamin C 500 mg 1,000 mg PO BID@03/25/13 (*)] Aspirin [Aspirin 81mg (*)] 81 mg PO DAILY 03/25/13 Herbals/Supplements -Info Only 1 each PO AD 03/25/13 Levothyroxine [Synthroid 50 mcg 50 mcg PO HS 03/25/13 (*)] Multivitamins [Multivitamin (*)] 1 tab PO DAILY 03/25/13 Noble-3 Fatty Acids [Fish Oil 1000 1,000 mg PO DAILY 03/25/13 mg (*)] Warfarin Sodium [Coumadin 5MG (*)] 5 mg PO MOWEFR@03/25/13 Ascorbic Acid [Vitamin C 500 mg 2,000 mg PO DAILY 10/24/18 (*)] Atorvastatin Calcium [Lipitor 10 5 mg PO DAILY 10/24/18 mg (*)] Hydrochlorothiazide [HCTZ (*)] 25 mg PO DAILY 10/24/18 Losartan Potassium [Cozaar 50 mg 50 mg PO DAILY 10/24/18 (*)] Metoprolol Tartrate [Lopressor 25 6.25 mg PO HS 10/24/18 mg (*)] Warfarin Sodium [Coumadin 5MG (*)] 2.5 mg PO SUTUTHSA@10/24/18 Acetaminophen [Tylenol ES 500 mg 1,000 mg PO Q8H tab 10/25/18 (*)] Bacitracin/Polymyxin B Sulfate 1 brennon TP TID oint 10/25/18 [Polysporin oint (*)] Cyclobenzaprine [Flexeril 10 MG 5 mg PO TID #30 tab 10/25/18 (*)] HYDROmorphone HCL [Dilaudid 2 mg 2 mg PO Q4H PRN #40 tab 10/25/18 (*)] Lidocaine 4%/Menthol 1% [Icy Hot 1 patch TD DAILY 15 Days patch 10/25/18 Lidocaine/Menthol 4%/1% Patch (*)] Medical Decision Making - Diagnostics Imaging Results: Chest X-Ray 10/27/18 13:54 Impression: 1. Bronchitis/airways disease. 2. Atherosclerotic tortuous aorta. 3. Calcified mediastinal granulomata. 4. No definite pneumonia. Imaging: I viewed and interpreted images myself ED Course/Re-evaluation: This patient presents with severe right-sided rib pain, with a prior diagnosis of multiple rib fractures. Currently, his pain medication regimen is suboptimal and he is not taking narcotic pain medication. Repeat chest x-ray today reveals no evidence of pneumothorax or hemothorax. On exam, there is no evidence of any additional injury. Stanhope 1 tablet orally given. d/w pt and at length, will need stronger pain medication at home. Do not feel safe going home this evening. Will admit for pain management. 1500-consulted Dr. Jarrell, will admit to Medicine and the trauma service will consult. 1505: consulted Dr. Cristiano Balbuena, will admit to [facility]. Pt stable throughout his ED stay. Differential Diagnosis: Differential diagnosis includes though it is not limited to pneumonia, pneumothorax, pulmonary embolism, aortic dissection, pericarditis, acute coronary syndrome. - Data Points Laboratory Results: Laboratory Results 10/27/18 14:25 10/27/18 14:25 Medications Given: Acetaminophen (Tylenol) 1,000 mg PO Q8HRS [facility] Stop: 04/25/19 21:59 Last Admin: 10/28/18 13:50 Dose: 1,000 mg Atorvastatin Calcium (Lipitor) 5 mg PO DAILY TRACYE Stop: 04/26/19 08:59 Last Admin: 10/28/18 10:10 Dose: 5 mg Bacitracin/Polymyxin B Sulfate (Polysporin) 1 brennon TP TID TRACEY Stop: 11/26/18 21:59 Last Admin: 10/28/18 13:45 Dose: Not Given Hydrochlorothiazide (Hydrochlorothiazide) 25 mg PO DAILY TRACEY Stop: 04/26/19 08:59 Last Admin: 10/28/18 11:37 Dose: Not Given Lactulose (Cephulac) 20 gm PO TID PRN; Protocol PRN Reason: Constipation Stop: 04/25/19 15:52 Last Admin: 10/28/18 14:00 Dose: 20 gm Levothyroxine Sodium (Synthroid) 50 mcg PO HS TRACEY Stop: 04/25/19 20:59 Last Admin: 10/27/18 20:38 Dose: 50 mcg Losartan Potassium (Cozaar) 50 mg PO DAILY TRACEY Stop: 04/26/19 08:59 Last Admin: 10/28/18 11:37 Dose: Not Given Metoprolol Tartrate (Lopressor) 6.25 mg PO HS TRACEY Stop: 04/25/19 20:59 Last Admin: 10/27/18 20:38 Dose: 6.25 mg Miscellaneous Information (Patch Removal) 1 ea TD DAILY21 TRACEY Stop: 04/25/19 20:59 Last Admin: 10/28/18 05:30 Dose: 1 ea Miscellaneous Medication (Icy Hot Lidocaine/Menthol 4%/1% Patch) 1 patch TD DAILY TRACEY Stop: 04/25/19 15:59 Last Admin: 10/28/18 10:10 Dose: 1 patch Multivitamins (Tab-A-Cindi) 1 each PO DAILY TRACEY Stop: 04/26/19 08:59 Last Admin: 10/28/18 10:10 Dose: 1 each Sditi-0-Wmsf Ethyl Esters (Fish Oil) 1,000 mg PO DAILY TRACEY Stop: 04/26/19 08:59 Last Admin: 10/28/18 10:09 Dose: 1,000 mg Polyethylene Glycol (Miralax) 17 gm PO DAILY PRN; Protocol PRN Reason: Constipation, patient prefers Stop: 04/25/19 15:52 Last Admin: 10/28/18 05:26 Dose: 17 gm Senna/Docusate Sodium (Senokot-S) 1 - 2 tab PO BID TRACEY PRN Reason: Protocol Stop: 04/25/19 20:59 Last Admin: 10/28/18 10:09 Dose: 2 tab Tramadol HCl (Ultram) 50 mg PO Q6HRS PRN PRN Reason: Pain, Moderate Able to Take PO Stop: 04/26/19 13:04 Last Admin: 10/28/18 13:53 Dose: 50 mg Warfarin Sodium (Coumadin) 2.5 mg PO SUTUTHSA@09 [facility] Stop: 04/25/19 17:29 Last Admin: 10/27/18 17:48 Dose: 2.5 mg Warfarin Sodium (Coumadin) 5 mg PO MOWEFR@09 [facility] Stop: 04/26/19 08:59 Last Admin: 10/28/18 10:10 Dose: 5 mg Discontinued Medications Hydrocodone Bitart/Acetaminophen (Stanhope 5/325) 1 tab PO EDNOW ONE Stop: 10/27/18 15:10 Last Admin: 10/27/18 15:36 Dose: 1 tab Hydromorphone HCl (Dilaudid) 2 mg PO Q4HRS PRN PRN Reason: Pain, Severe Able to Take PO Stop: 11/06/18 15:11 Last Admin: 10/28/18 05:33 Dose: 2 mg Sodium Chloride (Ns) 1,000 mls @ 75 mls/hr IV CONT [facility] Stop: 10/28/18 04:29 Last Admin: 10/27/18 17:31 Dose: 1,000 mls Departure - Departure Disposition: [facility] Inpatient Acute Clinical Impression: Ribs, multiple fractures Qualifiers: Encounter type: initial encounter Fracture type: closed Laterality: right Qualified Code(s): S22.41XA - Multiple fractures of ribs, right side, initial encounter for closed fracture Condition: Fair
[2018-10-27] MEDS ORDERED: HYDROCODONE/APAP 5/325 TAB PO ONE (15:09)
[2018-10-27] MEDS ORDERED: ONDANSETRON 4 MG/2 ML VIAL IVP PRN (15:12)
[2018-10-27] MEDS ORDERED: HYDROmorphONE/DILAUDID 1 MG/ML INJ IVP PRN (15:12)
[2018-10-27] MEDS ORDERED: ACETAMINOPHEN 325 MG TAB PO PRN (15:12)
[2018-10-27] MEDS ORDERED: ONDANSETRON DISINTEGRATING 4 MG TAB PO PRN (15:12)
--- NOTE | 2018-10-27 15:46 | PDGENHP ---
History and Physical - Chief Complaint R sided rib pain - History of Present Illness Marybeth Reyna is a 83 yo M with a PMHx of A Fib on coumadin, TIA 08/2017, PE, prostate cancer s/p prostatectomy, SHANE, and multiple R sided recent Rib fractures s/p mechanical fall who presents to [facility] for severe R sided rib pain. His is at bedside who has helped with hx taking. They report that patient fall on Friday sustaining multiple R sided rib fractures. At that time, he was admitted to the trauma service and discharged the next kulwinder, Friday, back home. He was discharged on PO Dilaudid, Flexeril, scheduled Tylenol, and Lidocaine patch. They report that they were discharged late on Friday night and not able to get pain medications until yesterday afternoon. He was given Tylenol and Flexeril with some improvement of pain on Friday. This morning, pain was significantly worse, rated as "20/10" by patient causing him not to be able to get out of bed. His was concerned about the respiratory depression as a side effect of Dilaudid and withheld that medications. She also believed that Flexeril was causing sedation. Patient currently rates pain as 2/10 after receiving Dilaudid in ED. He denies any chest pain, n/v, diarrhea , f/c, LH, dizziness, palpitations. He does report no BM since Friday. History Information - Allergies/Home Medication List Allergies/Adverse Reactions: acetaminophen [From Percocet] Allergy (Severe, Verified 10/27/18 13:29) PASSED OUT coffee (Coffea arabica) [Coffee] Allergy (Severe, Verified 10/27/18 13:29) BALANCE ISSUES, PERIPERAL VISION AFFECTED, N/V oxycodone HCl [From Percocet] Allergy (Severe, Verified 10/27/18 13:29) PASSED OUT RUM Allergy (Severe, Uncoded 12/13/10 15:11) VOMIT rum, alcohol Allergy (Intermediate, Uncoded 11/11/11 22:01) Vomiting Home Medications: Ascorbic Acid [Vitamin C 500 mg (*)] 1,000 mg PO BID@03/25/13 [Last Taken 10/26/18] Aspirin [Aspirin 81mg (*)] 81 mg PO DAILY 03/25/13 [Last Taken 10/26/18] Herbals/Supplements -Info Only 1 each PO AD 03/25/13 [Last Taken 10/26/18] Levothyroxine [Synthroid 50 mcg (*)] 50 mcg PO HS 03/25/13 [Last Taken 10/26/18] Multivitamins [Multivitamin (*)] 1 tab PO DAILY 03/25/13 [Last Taken 10/26/18] Mercer-3 Fatty Acids [Fish Oil 1000 mg (*)] 1,000 mg PO DAILY 03/25/13 [Last Taken 10/26/18] Warfarin Sodium [Coumadin 5MG (*)] 5 mg PO MOWEFR@03/25/13 [Last Taken ] Ascorbic Acid [Vitamin C 500 mg (*)] 2,000 mg PO DAILY 10/24/18 [Last Taken ] Atorvastatin Calcium [Lipitor 10 mg (*)] 5 mg PO DAILY 10/24/18 [Last Taken ] Hydrochlorothiazide [HCTZ (*)] 25 mg PO DAILY 10/24/18 [Last Taken 10/26/18] Losartan Potassium [Cozaar 50 mg (*)] 50 mg PO DAILY 10/24/18 [Last Taken ] Metoprolol Tartrate [Lopressor 25 mg (*)] 6.25 mg PO HS 10/24/18 [Last Taken ] Warfarin Sodium [Coumadin 5MG (*)] 2.5 mg PO SUTUTHSA@10/24/18 [Last Taken ] I have personally reviewed and updated: family history, medical history, social history, surgical history - Past Medical History atrial fibrillation, cancer, hypertension - Surgical History Reports: cancer surgery - Family History Positive for: non-pertinent - Social History Smoking Status: Never smoked Review of Systems Review of Systems: ROS: 10pt was reviewed & negative except for what was stated in HPI & below Physical Exam Physical Exam: Temp Pulse Resp BP Pulse Ox 36.8 C 80 16 166/95 H 95 10/27/18 13:23 10/27/18 15:38 10/27/18 15:38 10/27/18 15:38 10/27/18 15:38 O2 (L/minute) 2 Constitutional: no apparent distress Eyes: PERRL Ears, Nose, Mouth, Throat: moist mucous membranes Cardiovascular: irregularly irregular Respiratory: no respiratory distress Gastrointestinal: soft, non-tender abdomen Skin: warm, normal color Musculoskeletal: pain with ROM Neurologic: AAOx3 Psychiatric: interacting appropriately Lab Data & Imaging Review 10/27/18 14:25 10/27/18 14:25 WBC 7.86 10^3/uL (3.80-9.50) 10/27/18 14:25 RBC 4.99 10^6/uL (4.40-6.38) 10/27/18 14:25 Hgb 17.4 g/dL (13.7-17.5) 10/27/18 14:25 Hct 49.7 % (40.0-51.0) 10/27/18 14:25 MCV 99.6 fL (81.5-99.8) 10/27/18 14:25 MCH 34.9 pg (27.9-34.1) H 10/27/18 14:25 MCHC 35.0 g/dL (32.4-36.7) 10/27/18 14:25 RDW 13.0 % (11.5-15.2) 10/27/18 14:25 Plt Count 154 10^3/uL (150-400) 10/27/18 14:25 MPV 9.6 fL (8.7-11.7) 10/27/18 14:25 Neut % (Auto) 74.1 % (39.3-74.2) 10/27/18 14:25 Lymph % (Auto) 14.6 % (15.0-45.0) L 10/27/18 14:25 Cobb % (Auto) 9.3 % (4.5-13.0) 10/27/18 14:25 Eos % (Auto) 1.3 % (0.6-7.6) 10/27/18 14:25 Baso % (Auto) 0.4 % (0.3-1.7) 10/27/18 14:25 Nucleat RBC Rel Count 0.0 % (0.0-0.2) 10/27/18 14:25 Absolute Neuts (auto) 5.83 10^3/uL (1.70-6.50) 10/27/18 14:25 Absolute Lymphs (auto) 1.15 10^3/uL (1.00-3.00) 10/27/18 14:25 Absolute Monos (auto) 0.73 10^3/uL (0.30-0.80) 10/27/18 14:25 Absolute Eos (auto) 0.10 10^3/uL (0.03-0.40) 10/27/18 14:25 Absolute Basos (auto) 0.03 10^3/uL (0.02-0.10) 10/27/18 14:25 Absolute Nucleated RBC 0.00 10^3/uL (0-0.01) 10/27/18 14:25 Immature Gran % 0.3 % (0.0-1.1) 10/27/18 14:25 Immature Gran # 0.02 10^3/uL (0.00-0.10) 10/27/18 14:25 Sodium 136 mEq/L (135-145) 10/27/18 14:25 Potassium 4.1 mEq/L (3.5-5.2) 10/27/18 14:25 Chloride 102 mEq/L (97-110) 10/27/18 14:25 Carbon Dioxide 24 mEq/l (22-31) 10/27/18 14:25 Anion Gap 10 mEq/L (6-14) 10/27/18 14:25 BUN 11 mg/dL (7-23) 10/27/18 14:25 Creatinine 0.9 mg/dL (0.7-1.3) 10/27/18 14:25 Estimated GFR > 60 10/27/18 14:25 Glucose 102 mg/dL (70-100) H 10/27/18 14:25 Calcium 8.7 mg/dL (8.5-10.4) 10/27/18 14:25 Specimen Hemolysis 196 10/27/18 14:25 Assessment & Plan Assessment: R Sided Rib Pain s/p Multiple Rib Fractures from Mechanical fall - Significant pain at home s/p mechanical fall causing 5 R sided rib fx - Admitted and discharged over the weekend by trauma surgery - CXR on admission showing no significant changes - Significant improvement in pain s/p Dilaudid in ED - Will continue PO Dilaudid 2 mg q4 hours PRN, PRN Flexeril, Lidocaine Patch, and scheduled tylenol - PT/OT ordered - Trauma surgery, Dr. Jarrell, to consult Constipation - Reports no BM since Friday - Will order bowel protocol HTN -Continue home HCTZ and Losartan A Fib - Continue home Metoprolol - Continue home Coumadin, restarted after mechanical fall, ASA held though per hospitalist consult on last admission - INR ordered Hypothyroidism - Continue home Synthroid HLD - Continue home Atorvastatin FEN: mIVF overnight @75 ml/hr, Regular Diet Code: FULL DVT PPx: Home Coumadin, INR pending Dispo: Admit to Observation
[2018-10-27] MEDS ORDERED: CYCLOBENZAPRINE 10 MG TAB PO PRN (15:51)
[2018-10-27] MEDS ORDERED: LACTULOSE 20 GM/30 ML UDCUP PO PRN (15:53)
[2018-10-27] MEDS ORDERED: BISACODYL 10 MG SUPP PR PRN (15:53)
[2018-10-27] MEDS ORDERED: POLYETHYLENE GLYCOL 3350 17 GM PKT PO PRN (15:53)
[2018-10-27] MEDS ORDERED: MAGNESIUM HYDROXIDE 30 ML UDCUP PO PRN (15:53)
[2018-10-27] MEDS ORDERED: NS 1,000 ML IV SCH (16:30)
--- NOTE | 2018-10-27 16:45 | TRAUMAPN ---
Trauma Progress Note - Problem/Surgery Performed (1) Fall from slip, trip, or stumble Assessment/Plan: patient is post injury day #3 following initial admission on 10/24 with discharge on 10/25 (2) Chest pain made worse by breathing Assessment/Plan: likely related to previously noted rib fractures, no findings to suggest delayed hemopneumothorax on repeat CXR today His pain is much improved currently 2/10, but was severe (he reports 20/10) enough to prompt him to call 911 (3) Atrial fibrillation Assessment/Plan: remains on anticoagulation with Coumadin/currently subtherapeutic with INR 1.77 will start therapeutic Lovenox until INR >2.2 Qualifiers: Atrial fibrillation type: chronic Qualified Code(s): I48.2 - Chronic atrial fibrillation (6) Ribs, multiple fractures Assessment/Plan: uncomplicated thus far would recommend regular scheduled NSAIDs and small doses of narcotics His previous "allergy" to Percocet was probably a dose related adverse reaction and he has tolerated Tylenol in the past I would recommend a trial of Ultram and continue lidocaine patches Qualifiers: Encounter type: initial encounter Fracture type: closed Laterality: right Qualified Code(s): S22.41XA - Multiple fractures of ribs, right side, initial encounter for closed fracture Assessment/Plan: 83 year old male s/p fall in front of his home on 10/24 admitted for observation and discharge on 10/25 readmitted for poor pain control His rib fractures appear uncomplicated Subjective: "feeling better now Doc" sitting up in ER gurney with supplemental O2 via NC, no respiratory distress, at bedside Objective: Vital Signs Temp Pulse Resp BP Pulse Ox 36.8 C 80 16 166/95 H 95 10/27/18 13:23 10/27/18 15:38 10/27/18 15:38 10/27/18 15:38 10/27/18 15:38 - C-Spine Clearance Cervical Spine Cleared: Yes Provider who Cleared Cervical Spine: Shorty Physical Exam - Physical Exam General Appearance: WD/WN, no apparent distress EENT: PERRL/EOMI Neck: non-tender Respiratory: lungs clear, decreased breath sounds Cardiac/Chest: irregularly irregular Peripheral Pulses: 0: dorsalis-pedis (L), 2+: dorsalis-pedis (R), 3+: femoral (R ), femoral (L), 4+: carotid (R), carotid (L) Abdomen: non-tender, soft, other (ecchymosis from injections) Male Genitalia: deferred Rectal: deferred Back: Normal inspection, Other (right paraspinous tenderness without bruising, no focal midline tenderness) Skin: other (extremities cool, mild cyanosis) Neuro/Psych: alert, normal mood/affect, oriented x 3 (uses hearing aides) Time Spent w/Patient (minutes): 30
[2018-10-27] MEDS: LIDOCAINE 4%/MENTHOL 1% PATCH TD SCH (17:31)
[2018-10-27] MEDS: WARFARIN SODIUM 5 MG TAB PO SCH (17:48)
[2018-10-27 19:23] LABS: INR 2.18 (0.83-1.16); PROTIME(PATIENT) 24.3 SEC (12.0-15.0)
[2018-10-27] MEDS: METOPROLOL TARTRATE 25 MG TAB PO SCH (20:38)
[2018-10-27] MEDS: LEVOTHYROXINE 50 MCG TAB PO SCH (20:38)
[2018-10-27] MEDS: SENNOSIDES/DOCUSATE SODIUM TAB PO SCH (20:38)
[2018-10-27] MEDS: HYDROmorphONE/DILAUDID 2 MG TAB PO PRN (20:59)
[2018-10-27] MEDS: ACETAMINOPHEN 500 MG TAB PO SCH (22:50)
[2018-10-27] MEDS: BACITRACIN/POLYMYXIN B SULFATE 28.3 GM TUBE TP SCH (22:51)
[2018-10-28] MEDS: ACETAMINOPHEN 500 MG TAB PO SCH ×3 (05:26→21:01)
[2018-10-28] MEDS: PATCH REMOVAL 1 EA PATCH TD SCH ×2 (05:30→21:04)
[2018-10-28] MEDS: HYDROmorphONE/DILAUDID 2 MG TAB PO PRN (05:33)
[2018-10-28] MEDS ORDERED: NS 500 ML IV ONE (08:10)
--- NOTE | 2018-10-28 09:51 | TRAUMAPN ---
Trauma Progress Note - Problem/Surgery Performed (1) Fall from slip, trip, or stumble Assessment/Plan: patient is post injury day #3 following initial admission on 10/24 with discharge on 10/25 Qualifiers: Encounter type: subsequent encounter Qualified Code(s): W01.0XXD - Fall on same level from slipping, tripping and stumbling without subsequent striking against object, subsequent encounter (2) Chest pain made worse by breathing Assessment/Plan: likely related to previously noted rib fractures, no findings to suggest delayed hemopneumothorax on repeat CXR today His pain is much improved currently 10/18, but was severe (he reports 20/) enough to prompt him to call 911 (3) Atrial fibrillation Assessment/Plan: remains on anticoagulation with Coumadin/currently 2.18 bradycardia and transient hypotension this AM, responding to fluids and Trendelenburg Hospitalist service is aware Qualifiers: Atrial fibrillation type: chronic Qualified Code(s): I48.2 - Chronic atrial fibrillation (4) Ribs, multiple fractures Assessment/Plan: uncomplicated thus far would recommend regular scheduled NSAIDs and small doses of narcotics His previous "allergy" to Percocet was probably a dose related adverse reaction and he has tolerated Tylenol in the past I would recommend a trial of Ultram and continue lidocaine patches Qualifiers: Encounter type: initial encounter Fracture type: closed Laterality: right Qualified Code(s): S22.41XA - Multiple fractures of ribs, right side, initial encounter for closed fracture Assessment/Plan: 83 year old male s/p fall in front of his home on 10/24 admitted for observation and discharge on 10/25 readmitted for poor pain control His rib fractures appear uncomplicated transient hypotension this morning/telemetry monitoring and consider cardiology consult Subjective: feeling better/reports transient hypotension and feeling woozy/currently eating eggs and mabry Objective: Vital Signs Temp Pulse Resp BP Pulse Ox 36.6 C 73 16 133/84 H 97 10/28/18 09:02 10/28/18 09:02 10/28/18 09:02 10/28/18 09:02 10/28/18 09:02 10/27/18 10/28/18 10/29/18 05:59 05:59 05:59 Intake Total 865 Output Total 175 10 Balance 690 -10 PT 24.3 SEC (12.0-15.0) H 10/27/18 19:04 INR 2.18 (0.83-1.16) H 10/27/18 19:04 - C-Spine Clearance Cervical Spine Cleared: Yes Provider who Cleared Cervical Spine: Shorty Physical Exam - Physical Exam General Appearance: alert, no apparent distress EENT: normal ENT inspection Neck: non-tender Respiratory: lungs clear, normal breath sounds Cardiac/Chest: bradycardia, irregularly irregular Peripheral Pulses: 2+: dorsalis-pedis (R), dorsalis-pedis (L), 3+: femoral (R), femoral (L) Abdomen: non-tender, soft Male Genitalia: deferred Rectal: deferred Extremities: normal range of motion, non-tender Neuro/Psych: no motor/sensory deficits, alert, normal mood/affect, oriented x 3
[2018-10-28] MEDS: SENNOSIDES/DOCUSATE SODIUM TAB PO SCH ×2 (10:09→21:00)
[2018-10-28] MEDS: OMEGA-3 FATTY ACIDS 1,000 MG CAP PO SCH (10:09)
[2018-10-28] MEDS: MULTIVITAMINS 1 EACH TAB PO SCH (10:10)
[2018-10-28] MEDS: ATORVASTATIN CALCIUM 10 MG TAB PO SCH (10:10)
[2018-10-28] MEDS: WARFARIN SODIUM 5 MG TAB PO SCH (10:10)
[2018-10-28] MEDS: LIDOCAINE 4%/MENTHOL 1% PATCH TD SCH (10:10)
[2018-10-28] MEDS ORDERED: oxyCODONE IR 5 MG TAB PO PRN (11:02)
[2018-10-28] MEDS: HYDROCHLOROTHIAZIDE 25 MG TAB PO SCH (11:37)
[2018-10-28] MEDS: LOSARTAN POTASSIUM 50 MG TAB PO SCH (11:37)
--- NOTE | 2018-10-28 13:04 | HOSPPROG ---
Hospitalist Progress Note Assessment/Plan: 83y male with c/o severe pain. First encounter, chart reviewed. #R Sided Rib Pain s/p Multiple Rib Fractures from Mechanical fall - Significant pain at home s/p mechanical fall causing 5 R sided rib fx - Admitted and discharged over the weekend by trauma surgery - CXR on admission showing no significant changes - Significant improvement in pain - Will continue Lidocaine Patch, and scheduled tylenol - PT/OT ordered - Trauma surgery D/W Dr. Jarrell - trial ultram #Hypotension -likely related to pain medication -responded to IVF -change pain med, DC dilaudid, cont tylenol, #Constipation - Resolved - bowel protocol #HTN -hold home HCTZ and Losartan due to hypotensive episode -likely restart in am #A Fib - Continue home Metoprolol - Continue home Coumadin, restarted after mechanical fall, ASA held though per hospitalist consult on last admission #Hypothyroidism - Continue home Synthroid #HLD - Continue home Atorvastatin #FEN: mIVF overnight @75 ml/hr, Regular Diet Code: FULL DVT PPx: Home Coumadin, INR pending Dispo: change to inpt needs further workup pain management PT/OT Subjective: Feeling well. No specific issues. Pain improved. Objective: Vital Signs Temp Pulse Resp BP Pulse Ox 36.1 C 82 15 144/88 H 96 10/28/18 11:07 10/28/18 11:07 10/28/18 11:07 10/28/18 11:07 10/28/18 11:07 10/27/18 10/28/18 10/29/18 05:59 05:59 05:59 Intake Total 865 Output Total 175 10 Balance 690 -10 PT 24.3 SEC (12.0-15.0) H 10/27/18 19:04 INR 2.18 (0.83-1.16) H 10/27/18 19:04 - Physical Exam Constitutional: no apparent distress, appears nourished, not in pain Eyes: PERRL, anicteric sclera, EOMI Ears, Nose, Mouth, Throat: moist mucous membranes, hearing normal, ears appear normal Cardiovascular: No JVD, No tachycardia, No edema Respiratory: no respiratory distress, no rales or rhonchi, reduced air movement Gastrointestinal: normoactive bowel sounds, No tenderness, No ascites Skin: warm, normal color, No mottled Musculoskeletal: no joint effusions, pain with ROM, generalized weakness Neurologic: AAOx3 Psychiatric: interacting appropriately, not anxious, not encephalopathic ICD10 Worksheet Patient Problems: Problems Problem Status Onset Ribs, multiple fractures Acute Fall from slip, trip, or stumble Acute Chest pain made worse by breathing Acute Atrial fibrillation Acute History of TIA (transient ischemic attack) Acute History of pulmonary embolism Acute
[2018-10-28] MEDS: BACITRACIN/POLYMYXIN B SULFATE 28.3 GM TUBE TP SCH ×3 (13:45→21:04)
[2018-10-28] MEDS: traMADol 50 MG TAB PO PRN ×2 (13:53→21:02)
--- NOTE | 2018-10-28 14:52 | ASMTCMCOM ---
CM Note CM Note Notes: Pt admitted to hospital after a fall. He has 5 broken ribs and is having trouble with pain control. PT recommending SNF, OT eval pending. CHANDA w/f. DC Plan: TBD Date Signed: 10/28/2018 02:52 PM Electronically Signed By:Lucita Deng RN
--- NOTE | 2018-10-28 15:01 | PDMN ---
Medical Necessity Medical necessity: Change to IP, as of 10/28/17, per [employer] & MCG M-545; los >2 mn for ongoing management of multiple rib fxs s/p mechanical fall; requiring further monitoring, pain management & therapies; comorbid advanced age, AFIB on AC, TIA, PE, SHANE
[2018-10-28] MEDS: LEVOTHYROXINE 50 MCG TAB PO SCH (21:02)
[2018-10-28] MEDS: METOPROLOL TARTRATE 25 MG TAB PO SCH (21:03)
[2018-10-29] MEDS: ACETAMINOPHEN 500 MG TAB PO SCH ×3 (05:25→20:50)
[2018-10-29] MEDS: traMADol 50 MG TAB PO PRN ×2 (05:35→20:51)
[2018-10-29 06:28] LABS: INR 2.87 (0.83-1.16)
[2018-10-29] MEDS: LIDOCAINE 4%/MENTHOL 1% PATCH TD SCH (09:09)
[2018-10-29] MEDS: SENNOSIDES/DOCUSATE SODIUM TAB PO SCH ×2 (09:42→20:50)
[2018-10-29] MEDS: WARFARIN SODIUM 5 MG TAB PO SCH (09:42)
[2018-10-29] MEDS: ATORVASTATIN CALCIUM 10 MG TAB PO SCH (09:42)
[2018-10-29] MEDS: OMEGA-3 FATTY ACIDS 1,000 MG CAP PO SCH (09:42)
[2018-10-29] MEDS: MULTIVITAMINS 1 EACH TAB PO SCH (09:42)
[2018-10-29] MEDS: BACITRACIN/POLYMYXIN B SULFATE 28.3 GM TUBE TP SCH ×2 (11:08→15:40)
--- NOTE | 2018-10-29 11:43 | HOSPPROG ---
Hospitalist Progress Note Assessment/Plan: 83y male with c/o severe pain. #R Sided Rib Pain s/p Multiple Rib Fractures from Mechanical fall - Significant pain at home s/p mechanical fall causing 5 R sided rib fx - Admitted and discharged over the weekend by trauma surgery - CXR on admission showing no significant changes - Significant improvement in pain - Will continue Lidocaine Patch, and scheduled tylenol - PT/OT ordered - Trauma surgery following - ultram #Hypotension -likely related to pain medication -responded to IVF -change pain med, DC dilaudid, cont tylenol -no further issues #Constipation - Resolved - bowel protocol #HTN -hold home HCTZ and Losartan due to hypotensive episode -restart when able #A Fib - Continue home Metoprolol - Continue home Coumadin, restarted after mechanical fall, ASA held though per hospitalist consult on last admission #Hypothyroidism - Continue home Synthroid #HLD - Continue home Atorvastatin #FEN:Regular Diet Code: FULL DVT PPx: Home Coumadin Dispo: change to inpt pain management PT/OT will need SNF arranged D/W CM and Subjective: Up in chair. Feeling well. Still some pain. No other issues. Objective: Vital Signs Temp Pulse Resp BP Pulse Ox 36.4 C 75 11 L 133/96 H 90 L 10/29/18 08:00 10/29/18 08:00 10/29/18 08:00 10/29/18 08:00 10/29/18 08:00 10/28/18 10/29/18 10/30/18 05:59 05:59 05:59 Intake Total 500 Output Total 1225 Balance -725 PT 30.0 SEC (12.0-15.0) H 10/29/18 05:22 INR 2.87 (0.83-1.16) H 10/29/18 05:22 - Physical Exam Constitutional: no apparent distress, appears nourished Eyes: PERRL, anicteric sclera Ears, Nose, Mouth, Throat: moist mucous membranes, hearing normal Cardiovascular: No JVD, No edema Respiratory: no respiratory distress, reduced air movement Gastrointestinal: No tenderness, No ascites Skin: warm, normal color, No mottled Musculoskeletal: pain with ROM, generalized weakness Neurologic: AAOx3 Psychiatric: interacting appropriately, not anxious, not encephalopathic ICD10 Worksheet Patient Problems: Problems Problem Status Onset Ribs, multiple fractures Acute Fall from slip, trip, or stumble Acute Chest pain made worse by breathing Acute Atrial fibrillation Acute History of TIA (transient ischemic attack) Acute History of pulmonary embolism Acute
--- NOTE | 2018-10-29 12:30 | ASMTCMCOM ---
CM Note CM Note Notes: Met with pt and , they would like a referral sent to [facility]. Date Signed: 10/29/2018 12:30 PM Electronically Signed By:Lucita Deng RN
--- NOTE | 2018-10-29 15:24 | SOAPPROG ---
SOAP Progress Note Assessment/Plan: Assessment/plan: 83 y/o M s/p mechanical fall last week, readmitted for pain control Multiple R sided rib fractures. Pain better controlled with scheduled Tylenol, lidocaine patch and prn tramadol. Continue cough, deep breathe, IS. A-fib. Coumadin restarted. Hypotension. Resolved. Dilaudid d/c'ed Continue to work with PT/OT. S: Still endorses significant R sided chest pain, but slightly improved. No other complaints. O: Alert Afebrile VSS Cardiac: irregularly irregular Chest: Breath sounds diminished throughout Abdomen: soft, nontender, nondistended 10/29/18 15:20 Objective: Vital Signs Temp Pulse Resp BP Pulse Ox 36.4 C 75 11 L 133/96 H 90 L 10/29/18 08:00 10/29/18 08:00 10/29/18 08:00 10/29/18 08:00 10/29/18 08:00 10/28/18 10/29/18 10/30/18 05:59 05:59 05:59 Intake Total 500 Output Total 1225 Balance -725 PT 30.0 SEC (12.0-15.0) H 10/29/18 05:22 INR 2.87 (0.83-1.16) H 10/29/18 05:22 ICD10 Worksheet Patient Problems: Problems Problem Status Onset Atrial fibrillation Acute Chest pain made worse by breathing Acute Fall from slip, trip, or stumble Acute History of TIA (transient ischemic attack) Acute History of pulmonary embolism Acute Ribs, multiple fractures Acute
[2018-10-29] MEDS: METOPROLOL TARTRATE 25 MG TAB PO SCH (20:51)
[2018-10-29] MEDS: LEVOTHYROXINE 50 MCG TAB PO SCH (20:51)
[2018-10-29] MEDS: PATCH REMOVAL 1 EA PATCH TD SCH (21:09)
--- NOTE | 2018-10-30 00:24 | SOAPPROG ---
SOAP Progress Note Assessment/Plan: Assessment: seen with my rnp randy this am/ please refer to her note rt sided rib pain 2/2 ribfxs/ bs equal/ o2 ok cxr stable/ hct stable Plan:continue pain management/ snf soon 10/30/18 00:21 Objective: Vital Signs Temp Pulse Resp BP Pulse Ox 36.6 C 70 16 129/86 H 95 10/29/18 23:33 10/29/18 23:33 10/29/18 23:33 10/29/18 23:33 10/29/18 23:33 10/28/18 10/29/18 10/30/18 05:59 05:59 05:59 Intake Total 500 Output Total 1225 Balance -725 PT 30.0 SEC (12.0-15.0) H 10/29/18 05:22 INR 2.87 (0.83-1.16) H 10/29/18 05:22 ICD10 Worksheet Patient Problems: Problems Problem Status Onset Atrial fibrillation Acute Chest pain made worse by breathing Acute Fall from slip, trip, or stumble Acute History of TIA (transient ischemic attack) Acute History of pulmonary embolism Acute Ribs, multiple fractures Acute
[2018-10-30] MEDS: BACITRACIN/POLYMYXIN B SULFATE 28.3 GM TUBE TP SCH ×4 (00:30→23:21)
[2018-10-30] MEDS: ACETAMINOPHEN 500 MG TAB PO SCH ×4 (05:35→21:37)
[2018-10-30 05:46] LABS: INR 2.95 (0.83-1.16); PROTIME(PATIENT) 30.6 SEC (12.0-15.0)
--- NOTE | 2018-10-30 08:47 | SOAPPROG ---
SOAP Progress Note Assessment/Plan: Assessment/Plan: Pt is 6 days s/p multiple R side rib fracture. Pain well managed with current regimen. Continue with PT/OT, coughing, spirometer. INR therapeutic range today for a-fib. Hopeful discharge to SNF tomorrow ([facility]). Patient seen and evaluated with Dr. Garcia. 10/30/18 09:36 Subjective: 83 yr old male who fell on 10/24. Found to have R sided rib fractures, no evidence of pneumo on CXR. Initial d/c on 10/25 and subsequently readmitted for pain control. His pain currently well managed on Tylenol, lidocaine patches, and ultram prn. No substernal chest pain or shortness of breath. Complains of pain only with out of bed transfers. Anticipating transition to [facility] rehab. Objective: Vital Signs Temp Pulse Resp BP Pulse Ox 36.6 C 70 17 131/82 H 96 10/30/18 07:54 10/30/18 07:54 10/30/18 07:54 10/30/18 07:54 10/30/18 07:54 10/29/18 10/30/18 10/31/18 05:59 05:59 05:59 Intake Total 500 300 Output Total 1225 Balance -725 300 PT 30.6 SEC (12.0-15.0) H 10/30/18 04:57 INR 2.95 (0.83-1.16) H 10/30/18 04:57 Gen: A&Ox3, afebrile, VSS HEENT: normal Chest: mild right posterior rib tenderness CV: irregularly irregular Lungs: CTA bilateral Abdomen: soft, nondistended, nontender ICD10 Worksheet Patient Problems: Problems Problem Status Onset Atrial fibrillation Acute Chest pain made worse by breathing Acute Fall from slip, trip, or stumble Acute History of TIA (transient ischemic attack) Acute History of pulmonary embolism Acute Ribs, multiple fractures Acute
[2018-10-30] MEDS: LIDOCAINE 4%/MENTHOL 1% PATCH TD SCH (09:07)
[2018-10-30] MEDS: SENNOSIDES/DOCUSATE SODIUM TAB PO SCH ×2 (09:10→20:09)
[2018-10-30] MEDS: MULTIVITAMINS 1 EACH TAB PO SCH (09:10)
[2018-10-30] MEDS: WARFARIN SODIUM 5 MG TAB PO SCH (09:11)
[2018-10-30] MEDS: OMEGA-3 FATTY ACIDS 1,000 MG CAP PO SCH (09:11)
[2018-10-30] MEDS: ATORVASTATIN CALCIUM 10 MG TAB PO SCH (09:11)
[2018-10-30] MEDS: traMADol 50 MG TAB PO PRN (13:36)
--- NOTE | 2018-10-30 13:44 | HOSPPROG ---
Hospitalist Progress Note Assessment/Plan: 83y male with c/o severe pain. #R Sided Rib Pain s/p Multiple Rib Fractures from Mechanical fall - Significant pain at home s/p mechanical fall causing 5 R sided rib fx - Admitted and discharged over the weekend by trauma surgery - CXR on admission showing no significant changes - Significant improvement in pain - Will continue Lidocaine Patch, and scheduled tylenol - PT/OT ordered - Trauma surgery following - ultram #Hypotension -likely related to pain medication -responded to IVF -change pain med, DC dilaudid, cont tylenol -no further issues - restart home BP meds #Constipation - Resolved - bowel protocol #HTN -restart home HCTZ and Losartan #A Fib - Continue home Metoprolol - Continue home Coumadin, restarted after mechanical fall, ASA held though per hospitalist consult on last admission #Hypothyroidism - Continue home Synthroid #HLD - Continue home Atorvastatin #FEN:Regular Diet Code: FULL DVT PPx: Home Coumadin Dispo: change to inpt pain management PT/OT will need SNF DC in am if stable D/W CM and Subjective: Up in chair. Feels better. Less pain. Moving more. Objective: Vital Signs Temp Pulse Resp BP Pulse Ox 36.8 C 82 19 150/90 H 92 10/30/18 11:08 10/30/18 11:08 10/30/18 11:08 10/30/18 11:08 10/30/18 11:08 10/29/18 10/30/18 10/31/18 05:59 05:59 05:59 Intake Total 500 300 Output Total 1225 Balance -725 300 PT 30.6 SEC (12.0-15.0) H 10/30/18 04:57 INR 2.95 (0.83-1.16) H 10/30/18 04:57 - Physical Exam Constitutional: appears nourished, obese, uncomfortable Eyes: PERRL, anicteric sclera, EOMI Ears, Nose, Mouth, Throat: moist mucous membranes, hearing normal, ears appear normal Cardiovascular: No JVD, No tachycardia, No edema Respiratory: no respiratory distress, no rales or rhonchi, reduced air movement Gastrointestinal: normoactive bowel sounds, No tenderness, No ascites Skin: warm, normal color, No mottled Musculoskeletal: joint tenderness, pain with ROM, generalized weakness Neurologic: AAOx3 Psychiatric: interacting appropriately, not anxious, not encephalopathic ICD10 Worksheet Patient Problems: Problems Problem Status Onset Ribs, multiple fractures Acute Fall from slip, trip, or stumble Acute Chest pain made worse by breathing Acute Atrial fibrillation Acute History of TIA (transient ischemic attack) Acute History of pulmonary embolism Acute
[2018-10-30] MEDS: ASCORBIC ACID 500 MG TAB PO SCH (17:47)
[2018-10-30] MEDS: METOPROLOL TARTRATE 25 MG TAB PO SCH (20:06)
[2018-10-30] MEDS: LEVOTHYROXINE 50 MCG TAB PO SCH (20:09)
[2018-10-30] MEDS: PATCH REMOVAL 1 EA PATCH TD SCH (23:21)
[2018-10-31 05:49] LABS: INR 2.71 (0.83-1.16); PROTIME(PATIENT) 28.7 SEC (12.0-15.0)
[2018-10-31] MEDS: ACETAMINOPHEN 500 MG TAB PO SCH ×2 (06:00→14:42)
[2018-10-31 07:48] VITALS: BP 132/84
[2018-10-31] MEDS: MULTIVITAMINS 1 EACH TAB PO SCH (08:52)
[2018-10-31] MEDS: LIDOCAINE 4%/MENTHOL 1% PATCH TD SCH (08:52)
[2018-10-31] MEDS: HYDROCHLOROTHIAZIDE 25 MG TAB PO SCH (08:52)
[2018-10-31] MEDS: ATORVASTATIN CALCIUM 10 MG TAB PO SCH (08:52)
[2018-10-31] MEDS: traMADol 50 MG TAB PO PRN ×2 (08:53→14:42)
[2018-10-31] MEDS: OMEGA-3 FATTY ACIDS 1,000 MG CAP PO SCH (08:53)
[2018-10-31] MEDS: SENNOSIDES/DOCUSATE SODIUM TAB PO SCH (08:54)
[2018-10-31] MEDS: WARFARIN SODIUM 5 MG TAB PO SCH (08:54)
[2018-10-31] MEDS ORDERED: ASCORBIC ACID 500 MG TAB PO SCH (09:00)
[2018-10-31] MEDS: LOSARTAN POTASSIUM 50 MG TAB PO SCH (09:16)
[2018-10-31] MEDS: BACITRACIN/POLYMYXIN B SULFATE 28.3 GM TUBE TP SCH (09:16)
--- NOTE | 2018-10-31 10:09 | PDIAF ---
- Diagnosis Diagnosis: rib fractures Code Status: Full Code - Medication Management Discharge Medications: electronically signed and located in the Home Medication List. PICC Care - Routine: N/A - Orders Services needed: Registered Nurse, Physical Therapy, Occupational Therapy Diet Recommendation: no restrictions on diet - Follow Up Care Current Providers and Referrals: Patient,NotPresent [Unknown] - As per Instructions Susana Gasca MD [Primary Care Provider] -
--- NOTE | 2018-10-31 13:35 | ASMTCMCOM ---
CM Note CM Note Notes: Pt medically stable for d/c to [facility], orders sent in Allscripts. RN Tiffany to call report. Corrine with [facility] scheduled wc transport for 1500 and approves pt riding with him. Date Signed: 10/31/2018 01:34 PM Electronically Signed By:VANE Sky
--- NOTE | 2018-10-31 13:43 | TRAUMAPN ---
Trauma Progress Note - Problem/Surgery Performed (1) Fall from slip, trip, or stumble Assessment/Plan: patient is post injury day #7 following initial admission on 10/24 with discharge on 10/25 and readmit on 10/27 schedule for transfer to [facility] today Qualifiers: Encounter type: subsequent encounter Qualified Code(s): W01.0XXD - Fall on same level from slipping, tripping and stumbling without subsequent striking against object, subsequent encounter (2) Chest pain made worse by breathing Assessment/Plan: likely related to previously noted rib fractures improved over admission/tolerating Ultram (3) Atrial fibrillation Assessment/Plan: remains on anticoagulation with Coumadin/currently 2.71 baseline Qualifiers: Atrial fibrillation type: chronic Qualified Code(s): I48.2 - Chronic atrial fibrillation (4) Ribs, multiple fractures Assessment/Plan: uncomplicated thus far would recommend regular scheduled Tylenol and small doses of Ultram Qualifiers: Encounter type: initial encounter Fracture type: closed Laterality: right Qualified Code(s): S22.41XA - Multiple fractures of ribs, right side, initial encounter for closed fracture Assessment/Plan: 83 year old male s/p fall in front of his home on 10/24 admitted for observation and discharged on 10/25, readmitted on 10/27 His rib fractures remain uncomplicated His INR is now in therapeutic range. He will need follow up with his PCP in the next couple of weeks and should have a repeat INR in one week. Rx for Ultram on patient's chart Objective: Vital Signs Temp Pulse Resp BP Pulse Ox 36.6 C 67 17 132/84 H 98 10/31/18 07:48 10/31/18 07:48 10/31/18 07:48 10/31/18 09:16 10/31/18 07:48 10/30/18 10/31/18 11/01/18 05:59 05:59 05:59 Intake Total 300 350 Balance 300 350 PT 28.7 SEC (12.0-15.0) H 10/31/18 04:50 INR 2.71 (0.83-1.16) H 10/31/18 04:50 - C-Spine Clearance Cervical Spine Cleared: Yes Provider who Cleared Cervical Spine: Shorty Physical Exam - Physical Exam General Appearance: alert, no apparent distress Respiratory: lungs clear, decreased breath sounds Cardiac/Chest: irregularly irregular Abdomen: non-tender, soft Neuro/Psych: alert, normal mood/affect, oriented x 3
[2018-10-31] MEDS: ASCORBIC ACID 500 MG TAB PO SCH (14:41)
--- NOTE | 2018-10-31 15:59 | ASDISCHSUM ---
Discharge Information Plan Status:SNF Medically Cleared to Leave: Discharge Date:10/31/2018 03:44 PM CM D/C Disposition: ADT D/C Disposition:Fpc Facility Projected Discharge Date:10/31/2018 11:00 AM Transportation at D/C: Discharge Delay Reason: Follow-Up Date:10/31/2018 11:00 AM Discharge Slot: Final Diagnosis: Placement Information Referral Type:*Prison/SNF Referral ID:[id number] Provider Name:[facility] Address 1:[address] Address 2: City:[place] Selection Factors: State:[place] Patient Contact Information Contact Name:JOI Relationship: Address:[address] Work Phone: City:[facility] [place] Phone: State/Zip Code:[place] [address] Email: Financial Information Financial Class:Medicare Primary Plan Desc:MEDICARE INPATIENT Primary Plan Number:[id number] Secondary Plan Desc:WILLIS RODRIGUEZ RANKIN Secondary Plan Number:[id number] Assessment Information LACE LACE Length of stay for Answers: 4-6 days current admission Acuity / Level of Answers: Yes Care: Did the patient have an inpatient admission? Comorbidities - select Answers: Any tumor (including all that apply lymphoma or leukemia) Cerebrovascular disease (CVA, TIA, aneurysms, vasc ular dementia) Other Notes: AFib; HTN; HLD; Hypothy jacqui d # of Emergency department Answers: 1-2 visits in the last 6 months Score: 12 Date Signed: 10/31/2018 03:58 PM Electronically Signed By:VANE Sky [facility] CM Progress Note CM Note CM Note Notes: Pt admitted to hospital after a fall. He has 5 broken ribs and is having trouble with pain control. PT recommending SNF, OT pennyal pending. CM w/f. DC Plan: TBD Date Signed: 10/28/2018 02:52 PM Electronically Signed By:Lucita Deng RN [facility] CM Progress Note CM Note CM Note Notes: Met with pt and , they would like a referral sent to [facility]. Date Signed: 10/29/2018 12:30 PM Electronically Signed By:Lucita Deng RN [facility] CM Progress Note CM Note CM Note Notes: Pt medically stable for d/c to [facility], orders sent in Allscripts. AMELIA Allen to call reportDemetrice Castle with [facility] scheduled wc transport for 1500 and approves pt riding with him. Date Signed: 10/31/2018 01:34 PM Electronically Signed By:VANE Sky Intervention Information Intervention Type:*FUENTES-Signed Date of Service:10/28/2018 09:57 AM Patient Type:Observation Staff Member:Brandi Nair Hours: Discipline: Severity: Comment:
--- NOTE | 2018-10-31 20:37 | GDS ---
[f rep st] DISCHARGE SUMMARY DISCHARGE DIAGNOSES: 1. Multiple rib fractures secondary to mechanical fall. 2. Constipation, resolved. 3. Hypertension. 4. Atrial fibrillation. 5. Hypothyroidism. 6. Hyperlipidemia. CONSULTANTS: Clay Jarrell MD, Trauma Surgery. HISTORY OF DETAILS: Please see history and physical dated October 27, 2018. In brief, the patient is an 83-year-old male with a history of atrial fibrillation on Coumadin, TIA, PE, and prostate cance r who presented to the emergency department with right-sided rib pain. He was found to have multiple rib fractures after a mechanical fall, and was admitted to the hospital for further management. HOSPITAL COURSE: The patient admitted to the med/surg unit. Trauma Surgery consult was obtained. Anil melo had difficulty with pain control. Was actually discharged from the hospital the day prior to admis jarad, but returned as his was having a hard time managing him with increased sedation while on D ilaudid and Flexeril. These medications were held, and he was started on scheduled Tylenol. Lidoder m patch was added and he used p.r.n. tramadol for pain control. His condition significantly improved . However, therapy services are recommending he have a course at assisted facility rehab. He was continued on his Coumadin and has maintained a therapeutic INR of 2.7 on discharge. His other m edical problems remain stable. DISPOSITION: Patient is discharged to skilled nurse nursing facility in stable condition. FOLLOWUP: Dr. Susana Gasca, primary care. DISCHARGE MEDICATIONS: Please see Bee There completed medication list. New medications on discharge include: 1. Tramadol 25-50 mg p.o. q.6 hours p.r.n. #20 no refills. 2. Senokot 1-2 tabs p.o. b.i.d. 3. MiraLAX 17 g p.o. daily. 4. Lidoderm patch. 5. DISCONTINUED MEDICATIONS: Flexeril and Dilaudid were discontinued due to untoward side effects. His pain is controlled with the regimen above. /[id number]/MODL
== END 2018-10-31 15:44 | DRG 948 ==
LOC: EDBD → EDUNIT# → F3N 16:31 → OBSVTOIN 10-28 11:35
PROVIDERS: ADMIT Internal Medicine; ATTEND Internal Medicine
DX: G89.11 Acute pain due to trauma (principal); S22.41XA Multiple fractures of ribs, right side, initial encounter for closed fracture; W01.0XXA Fall on same level from slipping, tripping and stumbling without subsequent striking against object, initial encounter; Y92.099 Unspecified place in other non-institutional residence as the place of occurrence of the external cause; K59.00 Constipation, unspecified; I48.91 Unspecified atrial fibrillation; I10 Essential (primary) hypertension; E78.5 Hyperlipidemia, unspecified; E03.9 Hypothyroidism, unspecified; G47.33 Obstructive sleep apnea (adult) (pediatric); Z86.73 Personal history of transient ischemic attack (TIA), and cerebral infarction without residual deficits; Z85.46 Personal history of malignant neoplasm of prostate; Z96.643 Presence of artificial hip joint, bilateral; Z86.711 Personal history of pulmonary embolism; Z79.01 Long term (current) use of anticoagulants
CPT/HCPCS: 92523-GN; 97116-GP; 97162-GP; 97166-GO; 97530-GP; 97535-GO; G0378; G0463; Q9967

== ENCOUNTER 2019-01-13 19:24 | Emergency (ER) | payer OTHER ==
--- NOTE | 2019-01-13 20:05 | EDPHY ---
H & P Stated Complaint: fall earlier, lef rib pain Time Seen by Provider: 01/13/19 19:54 HPI/ROS: CHIEF COMPLAINT: Concern for rib injury HISTORY OF PRESENT ILLNESS: Patient is an 84-year-old man who fell today [place] about an hour ago. He landed on his outstretched arms and did not hit his chest on the ground. He was concerned however about his ribs because he had some slight pain in his left side and 3 months ago he was admitted to the hospital for breaking 5 ribs on the right side. He denies shortness of breath. He denies injuries to his extremities. He denies head neck or back pain. Severity: Moderate Modifying factors: None REVIEW OF SYSTEMS: Constitutional: denies: chills, fever, recent illness, recent injury EENTM: denies: blurred vision, double vision, nose congestion Respiratory: denies: cough, shortness of breath Cardiac: denies: chest pain, irregular heart rate, lightheadedness, palpitations Gastrointestinal/Abdominal: denies: abdominal pain, diarrhea, nausea, vomiting, blood streaked stools Genitourinary: denies: dysuria, frequency, hematuria, pain Musculoskeletal: See HPI Skin: denies: lesions, rash, jaundice, bruising Neurological: denies: headache, numbness, paresthesia, tingling, dizziness, weakness Hematologic/Lymphatic: denies: blood clots, easy bleeding, easy bruising Immunologic/allergic: denies: HIV/AIDS, transplant 10 systems reviewed and negative except as noted EXAM: GENERAL: Well-appearing, well-nourished and in no acute distress. HEAD: Atraumatic, normocephalic. EYES: Pupils equal round and reactive to light, extraocular movements intact, sclera anicteric, conjunctiva are normal. ENT: TMs normal, nares patent, oropharynx clear without exudates. Moist mucous membranes. NECK: Normal range of motion, supple without lymphadenopathy or JVD. LUNGS: No focal tenderness, Breath sounds clear to auscultation bilaterally and equal. No wheezes rales or rhonchi. HEART: Regular rate and rhythm without murmurs, rubs or gallops. ABDOMEN: Soft, nontender, normoactive bowel sounds. No guarding, no rebound. No masses appreciated. BACK: No CVA tenderness, no spinal tenderness, step-offs or deformities EXTREMITIES: Normal range of motion, no pitting or edema. No clubbing or cyanosis. NEUROLOGICAL: Cranial nerves II through XII grossly intact. Normal speech, normal gait. 5/5 strength, normal movement in all extremities, normal sensation , normal reflexes PSYCH: Normal mood, normal affect. SKIN: Warm, dry, normal turgor, no visible rashes or lesions. Source: Patient Exam Limitations: No limitations - Personal History Current Tetanus/Diphtheria Vaccine: Yes Current Tetanus Diphtheria and Acellular Pertussis (TDAP): Yes Tetanus Vaccine Date: 2000 - Medical/Surgical History Hx Asthma: No Hx Chronic Respiratory Disease: No Hx Diabetes: No Hx Cardiac Disease: Yes Hx Renal Disease: No Hx Cirrhosis: No Hx Alcoholism: No Hx HIV/AIDS: No Hx Splenectomy or Spleen Trauma: No Other PMH: a-fib, hypertension, hyperlipidemia, hypothyroid, tia/stroke, alexandre, arthritis, prostate ca - prostatectomy, bilat hip rep, tonsillectomy, lumbar laminectomy, PE - Family History Significant Family History: No pertinent family hx - Social History Smoking Status: Never smoked Alcohol Use: Sober Drug Use: None Constitutional: Initial Vital Signs Temperature (C) 36.7 C 01/13/19 19:28 Heart Rate 83 01/13/19 19:28 Respiratory Rate 16 01/13/19 19:28 Blood Pressure 161/99 H 01/13/19 19:28 O2 Sat (%) 95 01/13/19 19:28 O2 Delivery Mode Room Air Allergies/Adverse Reactions: coffee (Coffea arabica) [Coffee] Allergy (Severe, Verified 01/13/19 19:28) BALANCE ISSUES, PERIPERAL VISION AFFECTED, N/V oxycodone HCl [From Percocet] Allergy (Severe, Verified 01/13/19 19:28) PASSED OUT RUM Allergy (Severe, Uncoded 01/13/19 19:28) VOMIT rum, alcohol Allergy (Intermediate, Uncoded 01/13/19 19:28) Vomiting Home Medications: Medication Instructions Recorded Ascorbic Acid [Vitamin C 500 mg 1,000 mg PO BID@,18 03/25/13 (*)] Aspirin [Aspirin 81mg (*)] 81 mg PO DAILY 03/25/13 Herbals/Supplements -Info Only 1 each PO AD 03/25/13 Levothyroxine [Synthroid 50 mcg 50 mcg PO HS 03/25/13 (*)] Multivitamins [Multivitamin (*)] 1 tab PO DAILY 03/25/13 [place]-3 Fatty Acids [Fish Oil 1000 1,000 mg PO DAILY 03/25/13 mg (*)] Warfarin Sodium [Coumadin 5MG (*)] 5 mg PO MOWEFR@09 03/25/13 Ascorbic Acid [Vitamin C 500 mg 2,000 mg PO DAILY 10/24/18 (*)] Atorvastatin Calcium [Lipitor 10 5 mg PO DAILY 10/24/18 mg (*)] Hydrochlorothiazide [HCTZ (*)] 25 mg PO DAILY 10/24/18 Losartan Potassium [Cozaar 50 mg 50 mg PO DAILY 10/24/18 (*)] Metoprolol Tartrate [Lopressor 25 6.25 mg PO HS 10/24/18 mg (*)] Warfarin Sodium [Coumadin 5MG (*)] 2.5 mg PO SUTUTHSA@09 10/24/18 Acetaminophen [Tylenol ES 500 mg 1,000 mg PO Q8H tab 10/25/18 (*)] Bacitracin/Polymyxin B Sulfate 1 brennon TP TID oint 10/25/18 [Polysporin oint (*)] Lidocaine 4%/Menthol 1% [Icy Hot 1 patch TD DAILY 15 Days patch 10/25/18 Lidocaine/Menthol 4%/1% Patch (*)] Patch Removal 1 ea TD DAILY21 patch 10/31/18 Polyethylene Glycol 3350 [Miralax 17 gm PO DAILY PRN pkt 10/31/18 17 gm (*)] Sennosides/Docusate Sodium 1 - 2 tab PO BID tab 10/31/18 [Senokot-S] traMADol [Ultram 50 mg (*)] 25 - 50 mg PO Q6HRS PRN #20 tab 10/31/18 Medical Decision Making - Diagnostics Imaging: Discussed imaging studies w/ visual specialist Radiologist ED Course/Re-evaluation: 8:45 p.m. We discussed the x-ray results which are reassuring. Patient is currently asymptomatic. feels comfortable taking him home. Discussed follow-up and indications for returning. Differential Diagnosis: Partial list of the Differential diagnosis considered include but were not limited to; contusion, muscle strain, rib fracture and although unlikely based on the history and physical exam, I also considered pneumothorax, head injury, neck injury. I discussed these differential diagnoses and the plan with the patient as well as the usual and expected course. The patient understands that the diagnosis is provisional and that in medicine we are not always correct and that further workup is often warranted. Usual and customary warnings were given. All of the patient's questions were answered. The patient was instructed to return to the emergency department should the symptoms at all worsen or return, otherwise to followup with the physician as we discussed. Departure - Departure Disposition: Home, Routine, Self-Care Clinical Impression: Muscle strain Condition: Good Instructions: Muscle Strain (ED) Referrals: Susana Gasca MD [Primary Care Provider] - As per Instructions
[2019-01-13 21:52] VITALS: BP 154/108
== END 2019-01-13 21:52 | disposition home or self-care (01) ==
DX: S29.011A Strain of muscle and tendon of front wall of thorax, initial encounter (principal); I48.91 Unspecified atrial fibrillation; I10 Essential (primary) hypertension; E03.9 Hypothyroidism, unspecified; E78.5 Hyperlipidemia, unspecified; Z79.01 Long term (current) use of anticoagulants; Z79.82 Long term (current) use of aspirin; Z86.73 Personal history of transient ischemic attack (TIA), and cerebral infarction without residual deficits; Z86.711 Personal history of pulmonary embolism; W19.XXXA Unspecified fall, initial encounter